=== PATIENT | male | born 1945 | race Caucasian/White ===

== ENCOUNTER 2016-08-26 10:59 | Inpatient (IN) | payer MEDICARE, OTHER ==
[~2016-08-26] VITALS: Ht 180.3 cm; Wt 80.0 kg
[~2016-08-26 10:59] MED LIST: ASPI325T32 PO; CARV12.52 PO; FURO40TA4 PO; INSU100I13 SUBQ; MAGN400C PO; RIVA20TA PO; TAMS0.4C29 PO; ZLP10T PO
[2016-08-26 11:02] VITALS: BP 210/88; PULSE 90; RESP 16; O2SAT 97
--- NOTE | 2016-08-26 11:09 | ED.REPORT ---
HPI-Chest Pain 40 and Over Date of Service August 26, 2016 ED Provider: Grace Ferrera MD Patient is a 71 year old male with a history of NJ and diabetes who presents to the ED due to intermittent chest pain for the past three weeks. Associated symptoms include shortness of breath for the past couple months that is exacerbated by exertion, diaphoresis, and feet swelling. He denies nausea and vomiting. The patient reports that he is not currently having any chest pain. His last episode of chest pain was yesterday. Patient has had 6-7 episodes of sharp chest pain over the past three weeks that is resolved after taking nitro. Nursing Notes Stated Complaint: CHEST PAIN Chief Complaint: Chest Pain Nursing Notes Reviewed: Yes Allergies: Coded Allergies: codeine (Verified Adverse Reaction, Mild, STOMACH UPSET, 08/26/16) patient has been taking cough syrup with codeine and is not suffering from side effects per patient report. Scheduled Aspirin (Aspirin) 325 Mg Tablet.dr 325 MG PO NOON Carvedilol (Carvedilol) 12.5 Mg Tablet 12.5 MG PO BID Furosemide (Furosemide) 40 Mg Tablet 120 MG PO DAILY Insulin Glargine (Lantus U100 Solostar Insulin Pen) 100 Unit/Ml Inj 15 UNIT SUBQ HS Magnesium Oxide (Magnesium) 400 Mg Capsule 400 MG PO DAILY Rivaroxaban (Xarelto) 20 Mg Tablet 20 MG PO HS Tamsulosin ER (Tamsulosin ER) 0.4 Mg Cap.er.24h 0.4 MG PO HS Scheduled PRN Zolpidem (Ambien) 10 Mg Tablet 10 MG PO HS PRN PRN For Insomnia General Time Seen by MD: 11:09 Chief Complaint Chest pain Hx Obtained From: Patient Arrived By: Walk-in Sudden in Onset?: Yes Onset Occurred: More than a week ago... (3 weeks) Symptom Duration: Intermittent Location: : Chest left: Chest right Radiation: : Does not radiate Severity: Current: No pain currently Associated with: Reports: Shortness of Breath, Denies: Nausea Recent Healthcare: No recent hospitalization Similar Sx Previous: Yes Past Medical History Past Medical History Notes: Heart catheterization from September 15, 2014: Did not have disease that warranted intervention other than medical therapy. Past Medical History CHF NJ Aortic insufficiency Pulmonary HTN Patent foramen ovale Reports: Cancer, Diabetes mellitus, Hyperlipidemia, Hypertension Past Surgical History Heart catheterization 6/1/15 left ear surgery left knee surgery left finger surgery Reports: Back/neck surgery Smoking History Former Smoker Social History Drug Use: Meth, THC Other Social History: , Local resident Ambulatory Status Independent Review of Systems Respiratory: Denies: Non-productive cough Cardiovascular: Reports: Chest pain, Dyspnea on exertion GI: Denies: Nausea, Vomiting Musculoskeletal: Reports: Extremity swelling (feet) Skin: Reports Diaphoresis Complete sys rev & neg: except as marked. Physical Exam Initial Vital Signs Vital Signs (First) Date Time Temp Pulse Resp B/P Pulse Ox O2 Delivery O2 Flow Rate FiO2 08/26/16 11:02 36.2 90 16 210/88 97 Room Air 08/26/16 11:28 2 Initial VS: Reviewed, Vital signs abnormal General/Constitutional: Awake, Alert, No acute distress Respiratory / Chest: Atraumatic, No respiratory distress Rales / Rhonchi: Positive: Rales R base Cardiovascular: Heart rate NL, Regular rhythm, Heart sounds NL Abdomen: Atraumatic, Soft, Non-tender Neck: Atraumatic, Full range of motion, No JVD Lower Extremity / Pelvis / MS: Atraumatic, Full range of motion trace edema to both extremities Skin: Atraumatic, Color NL, No rash, Warm diaphoretic Neurologic: Oriented X3, Speech NL, No motor deficits, No sensory deficits Psychiatric: Affect NL, Mood NL Head / Eyes: Atraumatic, Normocephalic, PERRL, EOMI Upper Extremity / MS: Atraumatic, Full range of motion Interpretation & Diagnostics Lab Results Interpretation Result Diagram: 08/26/16 1108 08/26/16 1232 Test 08/26/16 11:08 08/26/16 12:32 White Blood Count 6.2th/mm3 (3.8-10.1) Red Blood Count 5.60mil/mm3 (4.40-5.80) Hemoglobin 17.4g/dL (13.8-17.2) Hematocrit 50.3% (41.0-50.0) Mean Corpuscular Volume 89.8fL (81-100) Mean Corpuscular Hemoglobin 31.1pg (27.0-35.0) Mean Corpuscular Hemoglobin Concent 34.6% (32.0-37.0) Red Cell Distribution Width 12.4% (12.3-15.4) Platelet Count 180bil/L (150-400) Neutrophils (%) (Auto) 68.3% (40-74) Lymphocytes (%) (Auto) 21.2% (14-46) Monocytes (%) (Auto) 8.3% (4-12) Eosinophils (%) (Auto) 1.4% (0-5) Basophils (%) (Auto) 0.5% (0-3) Pro-B-Type Natriuretic Peptide 2185pg/mL (0-376) Hold Coleman Top Tube Received (Received) Sodium Level 138mEq/L (134-144) Potassium Level 4.3mEq/L (3.5-5.2) Chloride Level 102mEq/L (97-108) Carbon Dioxide Level 21mmol/L (18-29) Blood Urea Nitrogen 27mg/dL (8-27) Creatinine 1.31mg/dL (0.76-1.27) Estimat Glomerular Filtration Rate 58mL/min (>59) Glucose Level 231mg/dL (60-99) Calcium Level 9.0mg/dL (8.5-10.1) Magnesium Level 1.9mg/dL (1.6-2.6) Total Bilirubin 0.4mg/dL (0.0-1.2) Aspartate Amino Transf (AST/SGOT) 34U/L (0-50) Alanine Aminotransferase (ALT/SGPT) 27U/L (0-44) Alkaline Phosphatase 102U/L (25-160) Troponin T 0.027ug/L (0.0-0.011) Total Protein 6.6g/dL (6.4-8.4) Albumin 3.5g/dL (3.4-5.0) ECG Interpretation ECG Interpretation: RBBB ST wave in 1 and AVL, somewhat simliar to EKG on 10/2012 Time: 11:13 Interpreted by: ED physician Normal ECG Interpretation: Normal rate (82), Normal sinus rhythm X-Ray Chest Interpretation Chest Xray Interpretation: IMPRESSION: Stable chest. No acute cardiopulmonary process is evident. Dictated by: Lance Hlom M.D. on 08/26/2016 at 10:53 Approved by: Lance Holm M.D. on 08/26/2016 at 10:53 View: Portable, 1 view Interpretation / Wet Read by: Interpret - Radiologist Re-Eval/Medical Decision Med Decision/Clinical Course The patient presents with chest pain and dyspnea on exertion which has been going on for a few weeks, he does not currently chest pain. Partial versus differential diagnoses considered were congestive heart failure, dysrhythmia, [place] , pneumonia, and pulmonary embolus. Evaluation here shows he does have congestive heart failure, some of this could be related to his hypertension or he may have hypertension related to congestive heart failure. His troponin was slightly elevated which may be related to increased demand on the heart related to his congestive heart failure or he may have some ischemia related to his chest pain. The pain is atypical but similar to his prior ischemic pain. I spoke with Dr. Lucio regarding this patient, he has an abnormal EKG which is more dramatic than prior, he is not having any chest pain with EKG today. The patient was not given a beta hilary initially, he was given nitroglycerin which would help his congestive heart failure or ischemic heart disease. The patient's heart rate and blood pressure improved with nitroglycerin and he did not have any chest pain and no beta blockers were given while he was in the emergency department. Time of Eval: 13:49 Re-Evaluation/Progress Note: Discussed results and plan for admit. The patient understands and agrees to the plan for admit. All questions were addressed Consultation #1: Referral / Consult Name: Steve Lucio MD Consulted With: Cardiology Call Returned at: 11:20 Panel Sewer: Agrees with eval, Agrees with plan Consultation #2: Referral / Consult Name: Neyda Avitia DO Consulted With: Hospitalist Call Returned at: 13:53 Panel Sewer: Agrees with eval, Agrees with plan, Accepts admit Counseled Regarding: Diagnosis, Lab results, Need for admission Discharge & Departure Primary Impression: CHF (congestive heart failure) Congestive heart failure type: unspecified congestive heart failure type Congestive heart failure chronicity: unspecified congestive heart failure chronicity Qualified Code: I50.9 - Heart failure, unspecified Additional Impression: Unstable angina Disposition: ADMITTED TO HOSPITAL Discharge Condition All VS Reviewed: Yes Condition: Stable Referrals: NOPCP (PCP) Scribe Attestation Portions of this note were transcribed by Saloni Clayton. I, Dr. Ferrera personally performed the history, physical exam and medical decision-making; I reviewed and confirmed the accuracy of the information in the transcribed note. Signed by: Roger Ahmadi, 08/26/16 and 1350 Grace Ferrera MD August 26, 2016 11:09 Marni Clayton August 26, 2016 11:20
[2016-08-26] MEDS ORDERED: Nitroglycerin 2% 1 Gm Ointment TOPICAL ONE ×2 (11:22→11:25)
[2016-08-26 11:23] LABS: BASOPHILS % (AUTO) 0.5 % (0-3); EOSINOPHILS % (AUTO) 1.4 % (0-5); MONOCYTES % (AUTO) 8.3 % (4-12); Mean Corpuscular Hemoglobin 31.1 pg (27.0-35.0); Mean Corpuscular Volume 89.8 fL (81-100); NEUTROPHILS % (AUTO) 68.3 % (40-74); Platelet Count 180 bil/L (150-400)
[2016-08-26 11:28] VITALS: BP 198/89; PULSE 77; RESP 16; O2SAT 98
--- NOTE | 2016-08-26 11:55 | DRSVH ---
PROCEDURE: X-RAY CHEST ONE VIEW, PORTABLE ([id number]) INDICATIONS: CHEST PAIN TECHNIQUE: One view of the chest was acquired. COMPARISON: [facility], , CHEST 1VW (PORTABLE), 10/28/2014, 13:07. FINDINGS: Surgical changes and devices: None. Lungs and pleura: No pleural effusions or pneumothorax. Lungs are clear. Mediastinum: Mediastinal contours appear normal. Heart size is normal. Bones and chest wall: No suspicious bony lesions. Overlying soft tissues appear unremarkable. IMPRESSION: Stable chest. No acute cardiopulmonary process is evident. Dictated by: Lance Holm M.D. on 08/26/2016 at 10:53 Approved by: Lance Holm M.D. on 08/26/2016 at 10:53
[2016-08-26] MEDS ORDERED: Furosemide 10 mg/mL 4 mL Inj IVPUSH ONE (12:45)
[2016-08-26 13:11] LABS: Magnesium 1.9 mg/dL (1.6-2.6)
[2016-08-26 13:12] LABS: TROPONIN T 0.027 ug/L (0.0-0.011)
[2016-08-26] MEDS ORDERED: Ondansetron 2 mg/mL 2 mL Inj IVPUSH PRN ×2 (15:25→16:45)
[2016-08-26] MEDS ORDERED: Alum-Mag Hydrox-Simeth 30 mL Suspension PO PRN ×2 (15:25→16:45)
[2016-08-26 15:26] VITALS: BP 141/58; PULSE 70; RESP 14
[2016-08-26 15:53] LABS: APPEARANCE,URINE CLEAR (CLEAR,HAZY); COLOR,URINE YELLOW (YELLOW); PH,URINE 5.5 (5.0-8.0)
[2016-08-26 15:54] LABS: OCCULT BLOOD,URINE MODERATE (NEGATIVE); UROBILINOGEN,URINE NORMAL (NORMAL)
[2016-08-26] MEDS ORDERED: CARV25TA2 PO (16:41)
[2016-08-26] MEDS ORDERED: INSU100I13 SUBQ (16:42)
[2016-08-26] MEDS ORDERED: MIRT15TA6 PO (16:44)
--- NOTE | 2016-08-26 16:44 | NUR ---
Med Rec Pt reports using [facility] in [place] for his pharmacy needs. [facility] reports that pt has not filled furosemide or lantus in over a year. Pt states that he does use a mail-order pharmacy for some meds but does not know what it is called. States he gets mirtazapine from the mail-order pharmacy but does not know the dose. Asked pt to have his bring in med bottles, pt states is stuck at home with no car but might be able to get a ride with a friend.
[2016-08-26] MEDS ORDERED: Polyethylene Glycol (PEG) 17 Gm Powder PO PRN (16:45)
--- NOTE | 2016-08-26 16:49 | PCM.HPMED ---
Subjective Date of Service August 26, 2016 Primary Provider: Admitting Physician: Neyda Avitia DO Primary Care Physician: Nopsuze Attending Physician: Steve Lucio MD Allergies Coded Allergies: codeine (Verified Adverse Reaction, Mild, STOMACH UPSET, 08/26/16) patient has been taking cough syrup with codeine and is not suffering from side effects per patient report. PMH Social History Hx Alcohol Use: Yes Alcoholic Drinks Per Day: 2-3 beers/day Hx Substance Use: Yes ("I've done all the drugs you can think of") Smoking Status: Former Smoker Exam Vital Signs Vital Sign - Last Date Time Temp Pulse Resp B/P Pulse Ox O2 Delivery O2 Flow Rate FiO2 08/26/16 15:26 70 14 141/58 08/26/16 11:28 98 Nasal Cannula 2 08/26/16 11:02 36.2 Lab and Diagnostics Result Diagram: 08/26/16 1108 08/26/16 1232 Assessment & Plan HPI: Patient is a 71-year-old male presents to the hospital with a complaint of chest pain and dyspnea possibly related to a new onset of CHF. The patient states that over the last week or 2 he has had increasing sharp pains in his chest. The patient stated that he thought that the patient pain will go away and when it became worse and he decided to come in and get it checked out as this was similar to previous chest pain that he has had resulting in an RI. The patient states that currently he does have some chest pain but it seems to have improved. The patient denies any shortness of breath, nausea, vomiting, diarrhea and constipation. Home medications: Aspirin 325 mg daily Carvedilol 25 mg by mouth twice a day Lantus 20 units subcutaneous every daily at bedtime Mirtazapine 15 mg by mouth daily Zolpidem 10 mg by mouth daily at bedtime BPH Allergies: Codeine patient is unsure of the reaction as this happened years ago PMHx: CAD Diabetes Depression Previous RI SHx: Multiple low back surgeries Left knee replacement Left finger surgery Tonsillectomy FHx: Grandmother had diabetes, sister has diabetes SocHx: Occupation: Tobacco history: Patient quit smoking in 1976 previous 3 pack per day smoker 20 years Alcohol use: Patient quit drinking in 1976 and was a heavy drinker, however patient restarted drinking 3 beers daily a few years ago Drug use: Previous drug user no IV drugs only smoked drugs, currently only smokes marijuana occasionally ROS: A complete review of systems was performed or attempted to be performed. Please see HPI for pertinent positives, all other systems are negatives. Physical Exam: GEN: Patient was awake, alert, responding appropriately to questions HEENT: Pupils equal round and reactive to light, extraocular eye muscles intact , Neck soft supple, trachea midline, nomocephalic/atraumatic CV: +S1/S2, regular rate and rhythm, no murmur auscultated Respiratory: CTAB, no wheezes, rales, rhonchi GI: +bowel sounds x4, soft, compressible, nontender to palpation EXT: no clubbing, cyanosis, edema Neuro: Cranial nerves II-XII grossly intact Psych: mood and affect were appropriate Assessment and Plan 71-year-old male who presents with chest pain Chest pain -Trend troponins -Cardiac stress test if troponins are negative -Echo -Follow up labs -Nothing by mouth after midnight -Consult cardiology New-onset CHF -Follow up BNP -Continue diuresis with IV Lasix Hypertension -Continue home medications Diabetes -Continue home medications BPH (currently stable) -Patient a longer takes tamsulosin Depression -Continue mirtazapine Code Status: Full code Diet: Heart healthy DVT prophylaxis: SCDs and ambulation, and heparin, Disposition: Due to the nature of the patient's current diagnosis anticipated stay is greater than 2 midnight Time spent One hour Neyda Avitia DO August 26, 2016 16:49
[2016-08-26] MEDS: Furosemide 10 mg/mL 4 mL Inj IVPUSH SCH (16:55)
[2016-08-26 18:55] VITALS: BP 166/78; PULSE 83; RESP 18; O2SAT 94
[2016-08-26 19:52] VITALS: BP 165/89; PULSE 83; RESP 18; O2SAT 97
[2016-08-26] MEDS ORDERED: Insulin GLARgine 100 Unit/mL Syringe SUBQ SCH (21:00)
[2016-08-26] MEDS: Insulin Human REGular 300 Unit/3 mL Inj SUBQ SCH (22:17)
[2016-08-27] VITALS (10 sets, daily range): BP systolic 110–158; BP diastolic 56–74; PULSE 47–83; RESP 16–20; O2SAT 95–98
[2016-08-27] MEDS: Insulin Human REGular 300 Unit/3 mL Inj SUBQ SCH ×5 (01:25→21:49)
[2016-08-27 06:32] LABS: Mean Corpuscular Hemoglobin 31.6 pg (27.0-35.0); Mean Corpuscular Volume 90.3 fL (81-100)
[2016-08-27 07:10] LABS: Magnesium 1.9 mg/dL (1.6-2.6)
[2016-08-27 07:20] LABS: TROPONIN T 0.038 ug/L (0.0-0.011)
[2016-08-27] MEDS: Furosemide 10 mg/mL 4 mL Inj IVPUSH SCH (09:08)
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
--- NOTE | 2016-08-27 14:35 | DRSVH ---
[facility] [address] [place] [address] Echocardiogram Report Name: JENNFYER GLOVER JStudy Date: 08/27/2016 Height: 71 in Hospital Exam Location: [facility] Weight: 175 lb Gender: Male BSA: 2.0 m2 : 1945 Age: 71 yrs BP: 118/74 mmHg Reason For Study: CHEST PAIN Ordering Physician: DEYA RAMIREZ Performed By: Neri Hernandez Interpretation Summary Left ventricular systolic function is low normal with the ejection fraction visually estimated to be 55-60% with a mild dyssynchronous contraction pattern, consistent with a conduction abnormality and mild hypokinesis in the proximal and mid inferior rivera that is unchanged compared to the previous study. There is moderate concentric left ventricular hypertrophy with diastolic parameters suggesting a relaxation abnormality of the left ventricle, consistent with normal filling pressures. There has been no significant change since the previous study. The right ventricle is normal size but there is mild right ventricular hypertrophy that is more prominent compared to the previous study. Right ventricular systolic function is at the lower limits of normal and is unchanged compared to the previous study. The right ventricular systolic pressure is estimated at 35 mmHg assuming a right atrial pressure of 3 mm Hg and comparison with the previous study is not possible because this was unable to be assessed on the previous study. The left atrium is mildly dilated while right atrial size is normal. Both appear unchanged compared to the previous study. The aortic valve is bicuspid and mildly calcified but there is no hemodynamically significant aortic stenosis. There is probable moderate aortic regurgitation with an eccentric jet of aortic insufficiency directed against the anterior mitral leaflet that makes quantification difficult but there is mild holodiastolic flow reversal in the descending thoracic aorta but this appears unchanged compared to the previous study. There is no other significant valvular heart disease. The ascending aorta is moderately enlarged and the aortic arch is mildly enlarged and both are grossly unchanged compared to the previous study. Procedure: A two-dimensional transthoracic echocardiogram with color flow and Doppler was performed. The study quality was technically good. Comparison is made with the echocardiogram of 04/21/15. The patient was in normal sinus rhythm during the exam. Left Ventricle: The left ventricle is normal in size. There is moderate concentric left ventricular hypertrophy. Left ventricular systolic function is low normal. The ejection fraction is estimated to be 55-60%. There is a mild dyssynchronous contraction pattern, consistent with a conduction abnormality. There is mild hypokinesis in the proximal and mid inferior rivera. This is unchanged compared to the previous study. Assessment of diastolic parameters indicates a relaxation abnormality of the left ventricle, consistent with normal filling pressures. There has been no significant change since the previous study. Right Ventricle: The right ventricle is normal size. There is mild right ventricular hypertrophy. This is more prominent compared to the previous study. Right ventricular systolic function is at the lower limits of normal. This is unchanged compared to the previous study. Atria: The left atrium is mildly dilated. Right atrial size is normal. This is unchanged compared to the previous study. The interatrial septum is intact with no evidence for an atrial septal defect. Mitral Valve: The mitral valve leaflets appear borderline thickened, but open well. There is trace mitral regurgitation. This is unchanged compared to the previous study. Aortic Valve: The aortic valve is bicuspid. The aortic valve is mildly calcified. Leaflet mobility is mildly reduced. There is no hemodynamically significant valvular aortic stenosis. There is moderate aortic regurgitation. There is an eccentric jet of aortic insufficiency directed against the anterior mitral leaflet. There is mild holodiastolic flow reversal in the descending thoracic aorta. This is unchanged compared to the previous study. Tricuspid Valve: The tricuspid valve is normal in structure and function. There is mild tricuspid regurgitation. This is unchanged compared to the previous study. The right ventricular systolic pressure is estimated at 35 mmHg assuming a right atrial pressure of 3 mm Hg. Comparison with the previous study is not possible because this was unable to be assessed on the previous study. Pulmonic Valve: The pulmonic valve is normal in structure and function. There is trace pulmonic regurgitation. There is no other significant valvular heart disease. Great Vessels: The aortic root is normal size. The ascending aorta is moderately enlarged. The aortic arch is mildly enlarged. This is unchanged compared to the previous study. The pulmonary artery is normal size. The IVC is of normal diameter and collapses greater than 50% with a sniff. This suggests a low right atrial pressure of 3 mm Hg. Pericardium/ Pleura There is no pericardial effusion. There is no pleural effusion. MMode/2D Measurements & Calculations LVIDd LA dimension: 5.0 cm RA long axis: 5.3 cm LVOT diam: 2.5 cm : 6.1 cm AoV Openin.1 cm LVIDs LA A2 area: 23.5 cm RA area: 15.1 cm Ao root diam : 4.5 cm LA A4 area: 26.8 cm RA vol: 36.6 ml FS: 26.7 % LA length (vol) RA : 18.4 ml/m2 Aortic Jxn: 2.7 cm EPSS: 1.4 cm asc Aorta Diam IVSd: 1.2 cmLA vol: 79.4 ml LVPWd LA vol index Ao Arch Diam (Prox : 1.1 cm Trans): 3.2 cm IVC diam: 1.3 cm DIMITRIS (plan) LV magana. diameter/BSA LV sys. diameter/BSA : 2.8 cm2 (cm/m^2): 3.1 (cm/m^2): 2.3 Doppler Measurements & Calculations Ao V2 max: 286.0 cm/sec MV E max agustin MV E/A: 0.52 TR max agustin Ao max P.7 mmHg : 30.6 cm/sec MV A dur : 282.4 cm/sec Ao mean P.7 mmHg MV A max agustin : 0.11 sec TR max PG LVOT Max Agustin : 58.2 cm/sec : 31.9 mmHg : 85.0 cm/sec PA V2 max DIMITRIS(I,D): 1.4 cm : 69.0 cm/sec sev ratio: 0.29 PA mean PG PA Accel Time : 0.11 sec MV dec time: 0.27 sec Ao V2 mean LV V1 max PG PA V2 mean : 214.2 cm/sec : 51.7 cm/sec Ao V2 VTI: 64.4 cm LV V1 VTI PA pr(Accel) DIMITRIS(V,D): 1.4 cm2 : 18.8 cm : 32.8 mmHg DIMITRIS indexed to BSA (cm^2/m^2): 0.71 Reading Physician:02:34 PM
--- NOTE | 2016-08-27 16:41 | NUR ---
[facility] signed
--- NOTE | 2016-08-27 18:44 | PCM.PNMED ---
Subjective Date of Service August 27, 2016 Subjective Patient was seen and examined at bedside today. Patient denies any chest pain, shortness of breath, nausea, vomiting, diarrhea. Overnight events: Overnight the patient had an acute anxiety attack and sharp chest pains. The patient had an EKG and troponins taken. Nothing seems to be changed from the patient's current baseline. The patient was given some Ativan and this seemed to help calm him down. Exam Vital Signs Vital Sign - Last Date Time Temp Pulse Resp B/P Pulse Ox O2 Delivery O2 Flow Rate FiO2 08/27/16 17:05 36.7 64 20 134/59 96 Room Air 08/26/16 11:28 2 Intake and Output 08/26/16 08/26/16 08/27/16 Cumulative From/Thru 15:00 23:00 07:00 08/26/16 11:02 - 08/27/16 06:51 Intake Total 420 ml 420 ml Output Total 1000 ml 650 ml 1650 ml Balance -1000 ml -230 ml -1230 ml Intake Oral 420 ml 420 ml Output Urine Total 1000 ml 650 ml 1650 ml # Voids 2 2 Exam Physical Exam: GEN: Patient was awake, alert, responding appropriately to questions, a little disheveled HEENT: Pupils equal round and reactive to light, extraocular eye muscles intact , Neck soft supple, trachea midline, nomocephalic/atraumatic CV: +S1/S2, regular rate and rhythm, systolic murmur auscultated Respiratory: CTAB, no wheezes, rales, rhonchi GI: +bowel sounds x4, soft, compressible, nontender to palpation EXT: no clubbing, cyanosis, edema Neuro: Cranial nerves II-XII grossly intact Psych: mood and affect were appropriate IVs and Medications Medications Reviewed: Medications were reviewed in detail Lab and Diagnostics Result Diagram: 08/27/16 0610 08/27/16 0610 Cardiac Echo Impressions Echocardiogram Report Name: JENNYFER GLOVER JStudy Date: 08/27/2016 Height: 71 in Hospital Exam Location: [facility] Weight: 175 lb Gender: Male BSA: 2.0 m2 : 1945 Age: 71 yrs BP: 118/74 mmHg Reason For Study: CHEST PAIN Ordering Physician: DEYA RAMIREZ Performed By: Neri Hernandez Interpretation Summary Left ventricular systolic function is low normal with the ejection fraction visually estimated to be 55-60% with a mild dyssynchronous contraction pattern, consistent with a conduction abnormality and mild hypokinesis in the proximal and mid inferior rivera that is unchanged compared to the previous study. There is moderate concentric left ventricular hypertrophy with diastolic parameters suggesting a relaxation abnormality of the left ventricle, consistent with normal filling pressures. There has been no significant change since the previous study. The right ventricle is normal size but there is mild right ventricular hypertrophy that is more prominent compared to the previous study. Right ventricular systolic function is at the lower limits of normal and is unchanged compared to the previous study. The right ventricular systolic pressure is estimated at 35 mmHg assuming a right atrial pressure of 3 mm Hg and comparison with the previous study is not possible because this was unable to be assessed on the previous study. The left atrium is mildly dilated while right atrial size is normal. Both appear unchanged compared to the previous study. The aortic valve is bicuspid and mildly calcified but there is no hemodynamically significant aortic stenosis. There is probable moderate aortic regurgitation with an eccentric jet of aortic insufficiency directed against the anterior mitral leaflet that makes quantification difficult but there is mild holodiastolic flow reversal in the descending thoracic aorta but this appears unchanged compared to the previous study. There is no other significant valvular heart disease. The ascending aorta is moderately enlarged and the aortic arch is mildly enlarged and both are grossly unchanged compared to the previous study. Reading Physician:02:34 PM Assessment & Plan 71-year-old male who presents with chest pain Chest pain -Troponins are trending up -Stress test was canceled -Echo: 55-60% relatively unchanged from previous echo, except the patient does have a moderate LVH -Consulted cardiology (Dr. Lucio) New-onset CHF with moderate LVH -Follow up BNP -Change patient to by mouth Lasix 40mg daily Hypertension -Decrease carvedilol to 12.5 mg by mouth twice a day -Aspirin 325 daily -We will possibly reintroduce ROMEO inhibitor or Norvasc the patient's daily regimen Diabetes (uncontrolled) -Hemoglobin A1c is 9.2 -Increase Lantus to 30 units daily at bedtime BPH (currently stable) -Patient a longer takes tamsulosin Depression -Continue mirtazapine Hyperlipidemia -Patient's total cholesterol is 327 and LDL is elevated at 195 -Start 40 mg of atorvastatin daily at bedtime Code Status: Full code Diet: Heart healthy DVT prophylaxis: SCDs and ambulation, and heparin, Disposition: After extensive discussion with Dr. Lucio was cardiology it was decided that the patient's symptoms are most likely secondary to hypertension and renal insufficiency due to the patient being noncompliant with his medications. At this time the patient's beta hilary has been decreased secondary to bradycardia. The patient will need another 1-2 days to optimize his medications for hypertension. Will add back either an ROMEO inhibitor or amlodipine based on the patient's blood pressure. Neyda Avitia DO August 27, 2016 18:44
--- NOTE | 2016-08-27 18:47 | PCM.ADCARE ---
Advance Care Planning Note Plan: Purpose of encounter: Goals of care Parties in attendance: The patient and Dr. Avitia Decisional capacity: Good Plan: The patient is aware of the current diagnosis and would like to continue to be full code. The patient understands that this means that he will have chest compressions, intubation, pressors, and all measures involved with CPR. CODE STATUS: Full code Time spent with advanced care planning: Greater than 16 minutes Neyda Avitia DO August 27, 2016 18:47
[2016-08-27] MEDS ORDERED: Insulin GLARgine 100 Unit/mL Syringe SUBQ SCH (21:00)
[2016-08-28] VITALS (8 sets, daily range): BP systolic 131–177; BP diastolic 59–76; PULSE 56–84; RESP 16–20; O2SAT 94–97
--- NOTE | 2016-08-28 06:00 | NUR ---
No change in condition Pt rested, eyes closed, through the night with no change in condition. No S/S or complaints of chest pain.
[2016-08-28 06:59] LABS: Mean Corpuscular Hemoglobin 31.8 pg (27.0-35.0); Mean Corpuscular Volume 91.8 fL (81-100)
[2016-08-28 08:17] LABS: Magnesium 2.1 mg/dL (1.6-2.6)
[2016-08-28 08:19] LABS: TROPONIN T 0.045 ug/L (0.0-0.011)
[2016-08-28] MEDS: Insulin Human REGular 300 Unit/3 mL Inj SUBQ SCH ×4 (08:48→20:40)
--- NOTE | 2016-08-28 14:18 | NUR ---
Social Work: Initial Assessment / Readiness for d/c Data: Pt is a 71 y/o male admitted for CHF, unstable angina. Pt's PCP is not listed. Pt's insurance is Medicare with [employer]. EMR reviewed. Readmit score is 4, high. DUB ROOM ENGINEER met with pt at bedside, role explained. Pt states that he lives in [place] with his in a two story home where he occasionally uses a cane. Pt states he drives, has no hx of HH or SNF, no LTC or VA benefits, pt is not a caregiver. DUB ROOM ENGINEER offered HH RN regarding pt's CHF. Pt declines at this time. Pt has a hx of drug use, but states that is in the past and that he does not currently use. DUB ROOM ENGINEER will continue to follow if needs arise. Assessment: Pt who is independent at baseline. Plan: Pt will d/c home via POV when medically stable, likely 1-2 days per MD. DUB ROOM ENGINEER offered HH RN regarding pt's CHF. Pt declines at this time. DUB ROOM ENGINEER will continue to follow if needs arise. DANILO Apodaca Addendum: 08/28/16 at 1421 by CHLOE PA Amended: Links added.
--- NOTE | 2016-08-28 14:23 | PCM.PNMED ---
Subjective Date of Service August 28, 2016 Subjective Patient was seen and examined at bedside today. Patient denies any chest pain, shortness of breath, nausea, vomiting, diarrhea. Patient states that he is feeling better and that most of his symptoms have resolved. The patient states that he does have insomnia however he has been sleeping well here. Overnight events: None Exam Vital Signs Vital Sign - Last Date Time Temp Pulse Resp B/P Pulse Ox O2 Delivery O2 Flow Rate FiO2 08/28/16 13:35 36.3 60 20 135/59 94 Room Air 08/26/16 11:28 2 Intake and Output 08/27/16 08/27/16 08/28/16 Cumulative From/Thru 15:00 23:00 07:00 08/26/16 11:02 - 08/28/16 05:39 Intake Total 1490 ml 1910 ml Output Total 950 ml 2600 ml Balance 540 ml -690 ml Intake Oral 1490 ml 1910 ml Output Urine Total 950 ml 2600 ml # Voids 2 Exam Physical Exam: GEN: Patient was awake, alert, responding appropriately to questions HEENT: Pupils equal round and reactive to light, extraocular eye muscles intact , Neck soft supple, trachea midline, nomocephalic/atraumatic CV: +S1/S2, regular rate and rhythm, systolic murmur auscultated Respiratory: CTAB, no wheezes, rales, rhonchi GI: +bowel sounds x4, soft, compressible, nontender to palpation EXT: no clubbing, cyanosis, edema Neuro: Cranial nerves II-XII grossly intact Psych: mood and affect were appropriate IVs and Medications Medications Reviewed: Medications were reviewed in detail Lab and Diagnostics Result Diagram: [id number]/28/[id number] Cardiac Echo Impressions Echocardiogram Report Name: JENNYFER GLOVER JStudy Date: 08/27/2016 Height: 71 in Hospital Exam Location: [facility] Weight: 175 lb Gender: Male BSA: 2.0 m2 : 1945 Age: 71 yrs BP: 118/74 mmHg Reason For Study: CHEST PAIN Ordering Physician: DEYA TEAM Performed By: Neri Hernandez Interpretation Summary Left ventricular systolic function is low normal with the ejection fraction visually estimated to be 55-60% with a mild dyssynchronous contraction pattern, consistent with a conduction abnormality and mild hypokinesis in the proximal and mid inferior rivera that is unchanged compared to the previous study. There is moderate concentric left ventricular hypertrophy with diastolic parameters suggesting a relaxation abnormality of the left ventricle, consistent with normal filling pressures. There has been no significant change since the previous study. The right ventricle is normal size but there is mild right ventricular hypertrophy that is more prominent compared to the previous study. Right ventricular systolic function is at the lower limits of normal and is unchanged compared to the previous study. The right ventricular systolic pressure is estimated at 35 mmHg assuming a right atrial pressure of 3 mm Hg and comparison with the previous study is not possible because this was unable to be assessed on the previous study. The left atrium is mildly dilated while right atrial size is normal. Both appear unchanged compared to the previous study. The aortic valve is bicuspid and mildly calcified but there is no hemodynamically significant aortic stenosis. There is probable moderate aortic regurgitation with an eccentric jet of aortic insufficiency directed against the anterior mitral leaflet that makes quantification difficult but there is mild holodiastolic flow reversal in the descending thoracic aorta but this appears unchanged compared to the previous study. There is no other significant valvular heart disease. The ascending aorta is moderately enlarged and the aortic arch is mildly enlarged and both are grossly unchanged compared to the previous study. Reading Physician:02:34 PM Assessment & Plan 71-year-old male who presents with chest pain Chest pain -Troponins are trending up -Stress test was canceled -Echo: 55-60% relatively unchanged from previous echo, except the patient does have a moderate LVH -Consulted cardiology (Dr. Lucio) New-onset CHF with moderate LVH -Follow up BNP -Change patient to by mouth Lasix 40mg daily Hypertension -Decrease carvedilol to 12.5 mg by mouth twice a day -Aspirin 325 daily -Start Norvasc 5 mg daily Acute kidney injury -Creatinine trending down -Hold off on lisinopril -Continue to monitor Diabetes (uncontrolled) -Hemoglobin A1c is 9.2 -Increase Lantus to 35 units daily at bedtime BPH (currently stable) -Patient states that he is taking tamsulosin restart tamsulosin 0.4 mg daily Depression -Continue mirtazapine Hyperlipidemia -Patient's total cholesterol is 327 and LDL is elevated at 195 -Start 40 mg of atorvastatin daily at bedtime Code Status: Full code Diet: Heart healthy DVT prophylaxis: SCDs and ambulation, and heparin, Disposition: Discussed this patient earlier today with Dr. Lucio (cardiology) who agrees with the plan to start the patient on Norvasc 5 mg daily as currently his blood pressure and heart rate did not seem to be able to tolerate an increased dose of metoprolol. A discussion was had with the patient today who states that he did stop taking his medications because he was ready to " give up on life" however he has restarted taking his medications especially his depression medication and this has helped him which is why he decided to come into the hospital when his chest pain started. The patient states that he is in a much better frame of mind currently and will be more compliant with his home medications. Neyda Avitia DO August 28, 2016 14:23
[2016-08-28] MEDS: DVT Prophylaxis per Pharmacist XX SCH (17:00)
--- NOTE | 2016-08-28 18:00 | NUR ---
Activity/shift Pt ind in room, tolerating activity with no c/o SOB or CP/discomfort. Pt took a shower this AM and tolerated well. Bed in lowest, locked position and call light in reach.
[2016-08-28] MEDS ORDERED: Insulin GLARgine 100 Unit/mL Syringe SUBQ SCH (21:00)
[2016-08-29 01:12] VITALS: BP 131/65; PULSE 59; RESP 16; O2SAT 96
[2016-08-29 05:15] VITALS: BP 133/64; PULSE 54; RESP 16; O2SAT 95
[2016-08-29] MEDS: Insulin Human REGular 300 Unit/3 mL Inj SUBQ SCH ×3 (07:30→16:23)
[2016-08-29 07:58] LABS: TROPONIN T 0.042 ug/L (0.0-0.011)
[2016-08-29 08:45] VITALS: BP 137/55; PULSE 53; RESP 18; O2SAT 96
--- NOTE | 2016-08-29 09:29 | NUR ---
HR HR 53 this AM, Coreg held. Pt asymptomatic. aware. Addendum: 08/29/16 at 1217 by JACOB VASQUES RN MD ordered decreased dose of Coreg (6.25mg). Dose given at ~1010 this AM. Upon reassessment, AP 59, pt asymptomatic. notified. Addendum: 08/29/16 at 1521 by THEA ARIZA @ 1200 initial BP 177/68 HR 59 patient had just been coughing. On recheck BP 172/64 HR 64 manual. notified, ordered lisinopril 5mg, administered at ~1400. Reassessment at 1500 BP 150/62 manual HR 64, patient asymptomatic, cookpaged. Addendum: 08/29/16 at 1834 by JACOB VASQUES RN Tierra TOVAR agrees with above.
[2016-08-29 10:04] VITALS: PULSE 58
[2016-08-29 12:35] VITALS: BP 177/68; PULSE 59
[2016-08-29 14:40] VITALS: BP 149/63; PULSE 64; RESP 18; O2SAT 95
[2016-08-29] MEDS ORDERED: INSU100V7 SUBQ (16:00)
[2016-08-29] MEDS ORDERED: CARV6.252 PO (16:00)
[2016-08-29] MEDS ORDERED: TAMS0.4C98 PO (16:00)
[2016-08-29] MEDS ORDERED: TEMA15CA3 PO (16:00)
[2016-08-29] MEDS ORDERED: ATOR40TA69 PO (16:00)
[2016-08-29] MEDS ORDERED: FURO40TA4 PO (16:00)
[2016-08-29] MEDS ORDERED: LISI-571 PO (16:00)
[2016-08-29] MEDS ORDERED: AMLO5TAB2 PO (16:00)
--- NOTE | 2016-08-29 16:14 | PCM.DIMED ---
Discharge Instructions Date of Service August 29, 2016 Dates of Hospitalization August 26, 2016 at 14:24 Discharge Diagnosis Discharge Diagnosis Chest pain with elevated troponins (likely stress-induced secondary to new onset CHF) New-onset congestive heart failure with moderate left ventricular hypertrophy Hypertension Acute kidney injury Diabetes (uncontrolled) BPH Depression Medication Instructions You have been prescribed some new medications please follow the new prescriptions and take your medications as prescribed. Diet Heart Healthy, Diabetic Activity No restrictions (gradually return to normal daily activities) Call your provider Shortness of breath, Chest pain, Weakness (unilateral) Patient Instructions Follow-up Provider: Davion Parra DO Follow-up with PCP in: 1 week (09/05/16 at 10: 30am if you have any questions please call [phone]) Neyda Avitia DO August 29, 2016 16:14
--- NOTE | 2016-08-29 16:16 | PCM.DC.MED ---
Discharge Summary Date of Service August 29, 2016 Dates of Hospitalization Date of Hospital Admission August 26, 2016 at 14:24 Date of Discharge: August 29, 2016 Providers: Admitting Physician: Neyda Avitia DO Primary Care Physician: Nopcp Attending Physician: Steve Lucio MD Diagnosis at Time of Discharge Diagnosis at Time of Discharge Chest pain with elevated troponins (likely stress-induced secondary to new onset CHF) New-onset congestive heart failure with moderate left ventricular hypertrophy Hypertension Acute kidney injury Diabetes (uncontrolled) BPH Depression Procedures Cardiac Echo Impression Echocardiogram Report Name: JENNYFER GLOVER JStudy Date: 08/27/2016 Height: 71 in Hospital Exam Location: [facility] Weight: 175 lb Gender: Male BSA: 2.0 m2 : 1945 Age: 71 yrs BP: 118/74 mmHg Reason For Study: CHEST PAIN Ordering Physician: DEYA RAMIREZ Performed By: Neri Hernandez Interpretation Summary Left ventricular systolic function is low normal with the ejection fraction visually estimated to be 55-60% with a mild dyssynchronous contraction pattern, consistent with a conduction abnormality and mild hypokinesis in the proximal and mid inferior rivera that is unchanged compared to the previous study. There is moderate concentric left ventricular hypertrophy with diastolic parameters suggesting a relaxation abnormality of the left ventricle, consistent with normal filling pressures. There has been no significant change since the previous study. The right ventricle is normal size but there is mild right ventricular hypertrophy that is more prominent compared to the previous study. Right ventricular systolic function is at the lower limits of normal and is unchanged compared to the previous study. The right ventricular systolic pressure is estimated at 35 mmHg assuming a right atrial pressure of 3 mm Hg and comparison with the previous study is not possible because this was unable to be assessed on the previous study. The left atrium is mildly dilated while right atrial size is normal. Both appear unchanged compared to the previous study. The aortic valve is bicuspid and mildly calcified but there is no hemodynamically significant aortic stenosis. There is probable moderate aortic regurgitation with an eccentric jet of aortic insufficiency directed against the anterior mitral leaflet that makes quantification difficult but there is mild holodiastolic flow reversal in the descending thoracic aorta but this appears unchanged compared to the previous study. There is no other significant valvular heart disease. The ascending aorta is moderately enlarged and the aortic arch is mildly enlarged and both are grossly unchanged compared to the previous study. Reading Physician:02:34 PM Hospital Course 71-year-old male who presents with chest pain Patient was admitted for chest pain with elevated troponins secondary to demand ischemia from the new onset of CHF. Many of the patient's medications have been changed as the patient has been noncompliant with his medications. The patient is now taking carvedilol 6.25 twice a day as he was having severe bradycardia. The patient has also been taking amlodipine 10 mg daily and lisinopril 5 mg daily to control his high blood pressure. Cardiology was consulted during this visit and found that the patient's chest pain and elevated troponins are most likely secondary to his uncontrolled hypertension with bradycardia. The patient also had uncontrolled diabetes with hemoglobin A1c of 9.2. His Lantus has been increased to 35 units daily at bedtime and this seems to have controlled the patient's blood sugars for now. He has been instructed to follow -up with his PCP in order to continue optimizing his medications. The patient has also been instructed to follow-up with his back grinder Dr. Marcial for further management of his cardiac medications. The patient is being discharged home in stable condition. For full hospital course see below: Chest pain -Troponins are trending up -Stress test was canceled -Echo: 55-60% relatively unchanged from previous echo, except the patient does have a moderate LVH -Consulted cardiology (Dr. Lucio) New-onset CHF with moderate LVH -Follow up BNP -Change patient to by mouth Lasix 40mg daily Hypertension -Decrease carvedilol to 12.5 mg by mouth twice a day -Aspirin 325 daily -Start Norvasc 5 mg daily Acute kidney injury (resolved) -Creatinine trending down -Hold off on lisinopril -Continue to monitor Diabetes (uncontrolled) -Hemoglobin A1c is 9.2 -Increase Lantus to 35 units daily at bedtime BPH (currently stable) -Patient states that he is taking tamsulosin restart tamsulosin 0.4 mg daily Depression -Continue mirtazapine Hyperlipidemia -Patient's total cholesterol is 327 and LDL is elevated at 195 -Start 40 mg of atorvastatin daily at bedtime Code Status: Full code Diet: Heart healthy DVT prophylaxis: SCDs and ambulation, and heparin, Disposition: Discussed this patient earlier today with Dr. Lucio (cardiology) who agrees with the plan to start the patient on Norvasc 5 mg daily as currently his blood pressure and heart rate did not seem to be able to tolerate an increased dose of metoprolol. A discussion was had with the patient today who states that he did stop taking his medications because he was ready to " give up on life" however he has restarted taking his medications especially his depression medication and this has helped him which is why he decided to come into the hospital when his chest pain started. The patient states that he is in a much better frame of mind currently and will be more compliant with his home medications. Exam Vital Signs (Last) Date Time Temp Pulse Resp B/P Pulse Ox O2 Delivery O2 Flow Rate FiO2 08/29/16 14:40 36.5 64 18 149/63 95 Room Air 08/26/16 11:28 2 Exam Physical Exam: GEN: Patient was awake, alert, responding appropriately to questions HEENT: Pupils equal round and reactive to light, extraocular eye muscles intact , Neck soft supple, trachea midline, nomocephalic/atraumatic CV: +S1/S2, regular rate and rhythm, systolic murmur auscultated Respiratory: CTAB, no wheezes, rales, rhonchi GI: +bowel sounds x4, soft, compressible, nontender to palpation EXT: no clubbing, cyanosis, edema Neuro: Cranial nerves II-XII grossly intact Psych: mood and affect were appropriate Test 08/26/16 11:08 08/26/16 15:30 08/27/16 06:10 08/28/16 06:34 Neutrophils (%) (Auto) 68.3% (40-74) Lymphocytes (%) (Auto) 21.2% (14-46) Monocytes (%) (Auto) 8.3% (4-12) Eosinophils (%) (Auto) 1.4% (0-5) Basophils (%) (Auto) 0.5% (0-3) Hemoglobin A1c 9.2% (4.8-5.6) Hold Coleman Top Tube Received (Received) Urine Color Yellow (YELLOW) Urine Appearance Clear (CLEAR,HAZY) Urine pH 5.5 (5.0-8.0) Urine Specific Fults 1.025 (1.003-1.035) Urine Protein >300mg/dL (NEG,TRACE) Urine Glucose (UA) 250mg/dL (NEGATIVE) Urine Ketones Negativemg/dL (NEGATIVE) Urine Occult Blood Moderate (NEGATIVE) Urine Nitrite Negative (NEGATIVE) Urine Bilirubin Negative (NEGATIVE) Urine Urobilinogen Normalmg/dL (NORMAL) Urine Leukocyte Esterase Negative (NEGATIVE) Urine RBC 0-2/hpf (0-2) Urine WBC 0-5/hpf (0-5) Urine Epithelial Cells Few/hpf (NONE-MOD) Urine Crystals None seen (NONE SEEN) Urine Bacteria Few/hpf (NONE-FEW) Urine Hyaline Casts None/lpf (NONE) Urine Granular Casts None seen (NONE SEEN) Urine Waxy Casts None seen (NONE SEEN) Urine Red Blood Cell Casts None seen (NONE SEEN) Urine White Blood Cell Casts None seen (NONE SEEN) Urine Mucus None seen (None Seen) Urine Trichomonas None seen (NONE SEEN) Urine Yeast None (NONE SEEN) Urinalysis Comment None Urine Culture Reflexed Not indicated Triglycerides Level 461mg/dL (0-149) Cholesterol Level 327mg/dL (100-199) LDL Cholesterol, Calculated 195.800mg/dL (0-99) VLDL Cholesterol 92.200mg/dL HDL Cholesterol 39mg/dL (>39) Cholesterol/HDL Ratio 8.38 (0.0-4.4) White Blood Count 6.3th/mm3 (3.8-10.1) Red Blood Count 4.88mil/mm3 (4.40-5.80) Hemoglobin 15.5g/dL (13.8-17.2) Hematocrit 44.8% (41.0-50.0) Mean Corpuscular Volume 91.8fL (81-100) Mean Corpuscular Hemoglobin 31.8pg (27.0-35.0) Mean Corpuscular Hemoglobin Concent 34.6% (32.0-37.0) Red Cell Distribution Width 12.4% (12.3-15.4) Platelet Count 165bil/L (150-400) Magnesium Level 2.1mg/dL (1.6-2.6) Total Bilirubin 0.3mg/dL (0.0-1.2) Aspartate Amino Transf (AST/SGOT) 28U/L (0-50) Alanine Aminotransferase (ALT/SGPT) 20U/L (0-44) Alkaline Phosphatase 93U/L (25-160) Pro-B-Type Natriuretic Peptide 581.4pg/mL (0-376) Total Protein 5.7g/dL (6.4-8.4) Albumin 3.2g/dL (3.4-5.0) Test 08/29/16 06:48 Sodium Level 141mEq/L (134-144) Potassium Level 3.9mEq/L (3.5-5.2) Chloride Level 101mEq/L (97-108) Carbon Dioxide Level 27mmol/L (18-29) Blood Urea Nitrogen 34mg/dL (8-27) Creatinine 1.48mg/dL (0.76-1.27) Estimat Glomerular Filtration Rate 50mL/min (>59) Glucose Level 128mg/dL (60-99) Calcium Level 9.1mg/dL (8.5-10.1) Troponin T 0.042ug/L (0.0-0.011) Discharge Medications Discharge Medications Amlodipine (Amlodipine) 5 Mg Tablet 10 MG PO DAILY Prescribed by: NEYDA AVITIA DO Aspirin (Aspirin) 325 Mg Tablet.dr 325 MG PO DAILY (Reported) Atorvastatin Calcium (Atorvastatin Calcium) 40 Mg Tablet 40 MG PO HS Prescribed by: NEYDA AVITIA DO Carvedilol (Carvedilol) 6.25 Mg Tablet 6.25 MG PO BID Prescribed by: NEYDA AVITIA DO Furosemide (Furosemide) 40 Mg Tablet 40 MG PO DAILY Prescribed by: NEYDA AVITIA DO Insulin Glargine (Lantus U100 Insulin Vial) 100 Unit/Ml Vial 35 UNIT SUBQ HS Prescribed by: NEYDA AVITIA DO Lisinopril (Lisinopril) 5 Mg Tablet 5 MG PO DAILY Prescribed by: NEYDA AVITIA DO Mirtazapine (Mirtazapine) 15 Mg Tablet Unknown Dose PO DAILY (Reported) Tamsulosin (Flomax) 0.4 Mg Capsule 0.4 MG PO DAILY Prescribed by: NEYDA AVITIA DO As needed Temazepam (Restoril) 15 Mg Capsule 30 MG PO HS PRN PRN Insomnia Prescribed by: NEYDA AVITIA DO Additional med instructions You have been prescribed some new medications please follow the new prescriptions and take your medications as prescribed. Followup Plan Discharge Diet: Heart Healthy, Diabetic Discharge Activity: No restrictions (gradually return to normal daily activities) Follow-up Provider: Davion Parra DO Follow-up with PCP in: 1 week (09/05/16 at 10: 30am if you have any questions please call [phone]) Provider: Luis A Marcial MD Follow-up in: 2 weeks (please call to schedule an appointment ) Time spent Greater than 35 minutes copies to: Luis A Marcial MD; Davion Parra Precious L DO August 29, 2016 16:16
--- NOTE | 2016-08-29 16:53 | NUR ---
SW - Discharge Data: Pt is on day 3 of hospitalization for CHF, unstable angina. EMR reviewed. Pt is medically cleared for discharge, is up independent in room. Pt has history of drug use but is not currently using. Pt declines HH services. Pt to discharge home via family. No needs assessed. Assessment: Pt who is independent at baseline Plan: Pt to discharge home via POV. No needs assessed. DANILO Verdin
[2016-08-29] MEDS: DVT Prophylaxis per Pharmacist XX SCH (17:00)
--- NOTE | 2016-08-29 18:14 | NUR ---
DISCHARGE Patient dc'd to home at 1755, off unit in wheelchair accompanied by his . Vital signs stable, alert and oriented, denies pain/discomfort/SOB, in no apparent distress. IV dc'd intact, all belongings returned from room and safe. All instructions for diet, activity, medications, prescriptions and follow up reviewed with patient who reports understanding. Addendum: 08/29/16 at 1834 by JACOB VASQUES RN This RN agrees with above.
== END 2016-08-29 18:09 | disposition home or self-care (01) | DRG 313 ==
LOC: SED 10:59 → OBSVTOIN 14:24 → MPC 14:24
PROVIDERS: ADMIT Neuromusculoskeletal Medicine & OMM; ATTEND Specialist
DX: R07.89 Other chest pain (principal); I50.9 Heart failure, unspecified; I25.2 Old myocardial infarction; Z79.82 Long term (current) use of aspirin; Z79.4 Long term (current) use of insulin; Z87.891 Personal history of nicotine dependence; I10 Essential (primary) hypertension; F32.9 Major depressive disorder, single episode, unspecified; E78.5 Hyperlipidemia, unspecified; Z51.5 Encounter for palliative care; E11.65 Type 2 diabetes mellitus with hyperglycemia; N40.0 Benign prostatic hyperplasia without lower urinary tract symptoms

== ENCOUNTER 2016-09-02 22:14 | Emergency (ER) | payer MEDICARE, OTHER ==
[~2016-09-02] VITALS: Ht 180.3 cm; Wt 80.0 kg
[~2016-09-02 22:14] MED LIST changes: +AMLO5TAB2 PO; +ATOR40TA69 PO; -CARV12.52 PO; +CARV6.252 PO; -INSU100I13 SUBQ; +INSU100V7 SUBQ; +LISI-571 PO; -MAGN400C PO; +MIRT15TA6 PO; -RIVA20TA PO; -TAMS0.4C29 PO; +TAMS0.4C98 PO; +TEMA15CA3 PO; -ZLP10T PO
[2016-09-02 22:15] VITALS: BP 149/65; PULSE 65; RESP 20; O2SAT 95
[2016-09-02 22:44] LABS: BASOPHILS % (AUTO) 0.6 % (0-3); EOSINOPHILS % (AUTO) 1.8 % (0-5); MONOCYTES % (AUTO) 9.6 % (4-12); Mean Corpuscular Hemoglobin 32.5 pg (27.0-35.0); Mean Corpuscular Volume 92.2 fL (81-100); NEUTROPHILS % (AUTO) 71.7 % (40-74); Platelet Count 181 bil/L (150-400)
[2016-09-02 22:45] VITALS: BP 135/52; PULSE 66; RESP 17; O2SAT 95
--- NOTE | 2016-09-02 22:56 | ED.REPORT ---
HPI-Chest Pain 40 and Over Date of Service September 02, 2016 ED Provider: Ceasar Hussein MD Pt is a 71 y.o. male with a hx of MS, CHF, DM, and HTN who presents to the c/o left chest pain onset today. Pt states that the chest pain began in the afternoon but he only "really noticed it" when he was going to bed. He denies associated nausea, vomiting, constipation, diarrhea, dark stool, diaphoresis, cough, and SOB. He states that the pain is now similar to when he had a broken rib. Nursing Notes Stated Complaint: CHEST PAIN Chief Complaint: Chest Pain Nursing Notes Reviewed: Yes Allergies: Coded Allergies: codeine (Verified Adverse Reaction, Mild, STOMACH UPSET, 09/02/16) patient has been taking cough syrup with codeine and is not suffering from side effects per patient report. Scheduled Amlodipine (Amlodipine) 5 Mg Tablet 10 MG PO DAILY Aspirin (Aspirin) 325 Mg Tablet.dr 325 MG PO DAILY Atorvastatin Calcium (Atorvastatin Calcium) 40 Mg Tablet 40 MG PO HS Carvedilol (Carvedilol) 6.25 Mg Tablet 6.25 MG PO BID Furosemide (Furosemide) 40 Mg Tablet 40 MG PO DAILY Insulin Glargine (Lantus U100 Insulin Vial) 100 Unit/Ml Vial 35 UNIT SUBQ HS Lisinopril (Lisinopril) 5 Mg Tablet 5 MG PO DAILY Mirtazapine (Mirtazapine) 15 Mg Tablet Unknown Dose PO DAILY Tamsulosin (Flomax) 0.4 Mg Capsule 0.4 MG PO DAILY Scheduled PRN Hydrocodone-Acetaminophen 5-325 mg (Hydrocodone-Acetaminophen 5-325 mg) 1 Each Tablet 1 TABLET PO Q4H PRN PRN For Pain Ondansetron ODT (Ondansetron ODT) 8 Mg Tab.rapdis 8 MG PO QID PRN PRN For Nausea Temazepam (Restoril) 15 Mg Capsule 30 MG PO HS PRN PRN Insomnia General Time Seen by MD: 22:51 Chief Complaint Chest pain Hx Obtained From: Patient Arrived By: Walk-in Sudden in Onset?: Yes Onset Occurred: 9 - 12 hours ago Symptom Duration: Since onset Past Medical History Past Medical History Notes: Heart catheterization from September 15, 2014: Did not have disease that warranted intervention other than medical therapy. Past Medical History CHF MS Aortic insufficiency Pulmonary HTN Patent foramen ovale Reports: Cancer, Diabetes mellitus, Hyperlipidemia, Hypertension Past Surgical History Heart catheterization 09/15/14 left ear surgery left knee surgery left finger surgery Reports: Back/neck surgery Smoking History Former Smoker Social History Drug Use: Meth, THC Other Social History: , Local resident Ambulatory Status Independent Review of Systems Respiratory: Denies: Shortness of breath Cardiovascular: Reports: Chest pain GI: Denies: Bloody/tarry stool, Constipation, Diarrhea, Nausea, Vomiting Complete sys rev & neg: except as marked. Physical Exam Initial Vital Signs Vital Signs (First) Date Time Temp Pulse Resp B/P Pulse Ox O2 Delivery O2 Flow Rate FiO2 09/02/16 22:15 36.0 65 20 149/65 95 Room Air Initial VS: Reviewed Head / Eyes: Atraumatic, Normocephalic Extremities: Vascular intact, Neuro intact Skin: Warm, Dry, No cyanosis Neurologic: Alert, Oriented, Nonfocal Psychiatric: Mood/affect normal, Behavior normal, Normal thought content General/Constitutional: Awake, Alert, No acute distress, Well appearing, Well developed, Well hydrated, Well nourished, Not toxic appearing Respiratory / Chest: Atraumatic, Breath sounds NL, Breath sounds = bilat, No respiratory distress, No wheezing Cardiovascular: Heart rate NL, Regular rhythm, Heart sounds NL, Peripheral circulation NL Abdomen: Atraumatic, Soft, Non-tender, No distention Bowel Sounds / Distention: Positive: Bowel sounds hyperactive Interpretation & Diagnostics Lab Results Interpretation Result Diagram: 09/02/16222709/02/162227 Test 09/02/16 22:28 White Blood Count 8.8th/mm3 (3.8-10.1) Red Blood Count 4.86mil/mm3 (4.40-5.80) Hemoglobin 15.8g/dL (13.8-17.2) Hematocrit 44.8% (41.0-50.0) Mean Corpuscular Volume 92.2fL (81-100) Mean Corpuscular Hemoglobin 32.5pg (27.0-35.0) Mean Corpuscular Hemoglobin Concent 35.3% (32.0-37.0) Red Cell Distribution Width 12.3% (12.3-15.4) Platelet Count 181bil/L (150-400) Neutrophils (%) (Auto) 71.7% (40-74) Lymphocytes (%) (Auto) 16.0% (14-46) Monocytes (%) (Auto) 9.6% (4-12) Eosinophils (%) (Auto) 1.8% (0-5) Basophils (%) (Auto) 0.6% (0-3) D-Dimer 0.72mg/L FEU (<0.50) Sodium Level 137mEq/L (134-144) Potassium Level 4.5mEq/L (3.5-5.2) Chloride Level 97mEq/L (97-108) Carbon Dioxide Level 22mmol/L (18-29) Blood Urea Nitrogen 46mg/dL (8-27) Creatinine 1.65mg/dL (0.76-1.27) Estimat Glomerular Filtration Rate 44mL/min (>59) Glucose Level 207mg/dL (60-99) Calcium Level 9.1mg/dL (8.5-10.1) Magnesium Level 1.8mg/dL (1.6-2.6) Total Bilirubin 0.2mg/dL (0.0-1.2) Aspartate Amino Transf (AST/SGOT) 39U/L (0-50) Alanine Aminotransferase (ALT/SGPT) 23U/L (0-44) Alkaline Phosphatase 109U/L (25-160) Troponin T 0.030ug/L (0.0-0.011) Total Protein 7.2g/dL (6.4-8.4) Albumin 3.8g/dL (3.4-5.0) Hold Coleman Top Tube Received (Received) ECG Interpretation Time: 22:26 Interpreted by: ED physician Normal ECG Interpretation: Normal rate (68), Normal sinus rhythm, No change from prior ECGs (08/28/16) BMP / CMP Interpretation Creatinine elevated Cardiac / Vascular Lab Interp Troponin abnormal, D-Dimer elevated X-Ray Chest Interpretation Chest Xray Interpretation: IMPRESSION: No acute cardiopulmonary disease. Interpretation / Wet Read by: Wet read ED physician CT Chest Interpretation IMPRESSION: No acute occlusive PE. Atherosclerotic disease. Other findings above. Radiologist: Cate Pierre MD CT Abd / Pelvis Interpretation IMPRESSION: Nonspecific enteritis pattern and mild ileus morphology. No appendicitis or diverticulitits. Other findings above. Please see final report for other non-emergent incidental findings. Radiologist: Cate Pierre MD Re-Eval/Medical Decision Med Decision/Clinical Course 71-year-old with shortness of breath and chest and abdominal pain, which does not sound cardiac. His EKG is baseline and abnormal. His d-dimer is elevated. CT angiogram was negative for clot. Chronic enzymes are negative. Abdomen is mild tenderness to palpation, and CT shows ileus. No other abnormal findings. Clear liquid diet recommended. Zofran for nausea. Discharged home in stable condition for follow-up with PCP. Source of Hx: Old records Counseled Regarding: Diagnosis, Lab results, Need for follow-up, When/why to return to ED Discharge & Departure Primary Impression: Non-cardiac chest pain Additional Impression: Ileus Disposition: Home Discharge Condition All VS Reviewed: Yes Condition: Improved Additional Instructions: Clear fluids and advance slowly as tolerated. Zofran if needed for nausea. May use Vicodin briefly if needed for pain. Follow-up with your doctor in the office. Follow-up the residency clinic if you need a local doctor. Return if your pain is worsening despite treatment. Referrals: NOPCP (PCP) [facility] Roger Attestation Portions of this note were transcribed by Antionette Pinzon. I, Dr. Hussein personally performed the history, physical exam and medical decision-making; I reviewed and confirmed the accuracy of the information in the transcribed note. Signed by: Roger Bañuelos, 09/03/16 and 0424. copies to: [facility] Ceasar Hussein MD September 02, 2016 22:56 ANTIONETTE PINZON September 02, 2016 23:03
[2016-09-02 23:00] VITALS: BP 135/56; PULSE 66; RESP 18; O2SAT 96
[2016-09-02 23:23] LABS: Magnesium 1.8 mg/dL (1.6-2.6)
[2016-09-02 23:24] LABS: TROPONIN T 0.03 ug/L (0.0-0.011)
[2016-09-02 23:44] VITALS: BP 133/52; PULSE 64; RESP 17; O2SAT 95
[2016-09-03] MEDS ORDERED: HYDROcodone-APAP 5-325 mg Tablet PO ONE (00:20)
[2016-09-03] MEDS ORDERED: HYDR-4003 PO (02:29)
[2016-09-03] MEDS ORDERED: ONDA8TAB10 PO (02:29)
[2016-09-03 03:05] VITALS: BP 160/59; PULSE 69; RESP 18; O2SAT 95
--- NOTE | 2016-09-03 08:44 | DRSVH ---
PROCEDURE: CT ANGIO CHEST PULMONARY EMBOLISM ([id number]) INDICATIONS: sob, chest pain, elevated dimer TECHNIQUE: After the administration of intravenous contrast, 2 mm thick sections acquired from the pulmonary api matt to the posterior costophrenic angles. 3-dimensional maximum intensity projection (MIP) coronal a nd sagittal reformats were then acquired through the thorax. For radiation dose reduction, the follo wing was used: automated exposure control, adjustment of mA and/or kV according to patient size. COMPARISON: None. FINDINGS: Image quality: Excellent. Pulmonary arteries: Pulmonary arteries are normal in size, and demonstrate no intraluminal filling d efects to suggest central pulmonary embolism. Lungs and pleura: Lungs are clear. No pleural effusions or pneumothorax. Central and peripheral ai rways are patent. Mediastinum: Heart size is enlarged, without pericardial effusion. No mediastinal or hilar adenopat hy. Thoracic demonstrates mild aneurysmal prominent in the ascending portion measuring 42 mm in hart sverse dimension. No priors are available for comparison. Esophagus is normal in caliber, with minima l hiatal hernia. Bones and chest wall: No suspicious bony lesions. Ribs and thoracic spine appear intact throughout. Thyroid gland is unremarkable. No axillary or supraclavicular adenopathy. Abdomen: Visualized upper abdominal solid organs appear normal in the early arterial phase of enhanc ement. IMPRESSION: 1. No pulmonary embolus. Lungs are clear. 2. Mild asscending thoracic aorta aneurysm. Recommend continued interval followup to document stabili ty. Dictated by: Felicia Infante M.D. on 09/03/2016 at 8:40 Approved by: Felicia Infante M.D. on 09/03/2016 at 8:43
--- NOTE | 2016-09-03 08:49 | DRSVH ---
PROCEDURE: CT ABDOMEN AND PELVIS WITH CONTRAST ([id number]) INDICATIONS: sob, chest pain, elevated dimer TECHNIQUE: After the administration of intravenous contrast, 5 mm thick sections acquired from the diaphragm to the symphysis. 5 mm coronal and sagittal reformats were acquired. For radiation dose reduction, the following was used: automated exposure control, adjustment of mA and/or kV according to patient siz e. COMPARISON: None. FINDINGS: Image quality: Excellent. ABDOMEN: Lung bases: Lung bases are clear. Heart size is minimally enlarged. Solid organs: Liver and spleen are normal in size and enhancement. Gallbladder is unremarkable. Bi liary system is non dilated. Pancreas enhances normally. No adrenal nodules. Kidneys are atrophic with lobulated appearances bilaterally. Nonobstructing renal calculi are present bilaterally.. Peritoneum and bowel: Small bowel demonstrates scattered loops of mild fluid-filled prominence. No fr ee fluid or air. Colonic diverticula are present without associated inflammatory change. Nodes and vessels: No retroperitoneal or mesenteric adenopathy by size criteria. Aorta and inferior vena cava are normal in size. Miscellaneous: No ventral hernias. Trace hiatal hernia. PELVIS: Genitourinary: Bladder wall thickness is normal. Miscellaneous: Fat-containing bilateral inguinal hernias are present. 11 mm right gluteus lipoma is p resent. Bones: No suspicious bony lesions. No vertebral body compression fractures. Posterior fusion from L3-S1 is present. IMPRESSION: 1. Nonspecific scattered fluid-filled prominence of several small bowel loops. This could be reflecti ve of enteritis and/or ileus. Dictated by: Felicia Infante M.D. on 09/03/2016 at 8:43 Approved by: eFlicia Infante M.D. on 09/03/2016 at 8:48
--- NOTE | 2016-09-03 09:27 | DRSVH ---
PROCEDURE: X-RAY CHEST ONE VIEW, PORTABLE ([id number]) INDICATIONS: CHEST PAIN TECHNIQUE: One view of the chest was acquired. COMPARISON: [facility], CR, XR CHEST 1VW (PORTABLE), 08/26/2016, 11:27. FINDINGS: Surgical changes and devices: None. Lungs and pleura: No pleural effusions or pneumothorax. Lungs are clear. Mediastinum: Mediastinal contours appear normal. Heart size is normal. Bones and chest wall: No suspicious bony lesions. Overlying soft tissues appear unremarkable. IMPRESSION: No acute pulmonary proces. Dictated by: Felicia Infante M.D. on 09/03/2016 at 9:24 Approved by: Felicia Infante M.D. on 09/03/2016 at 9:25
== END 2016-09-03 03:08 | disposition home or self-care (01) ==
LOC: SED 22:14
DX: R07.89 Other chest pain (principal); K56.7 Ileus, unspecified; I25.2 Old myocardial infarction; I50.9 Heart failure, unspecified; E11.9 Type 2 diabetes mellitus without complications; I10 Essential (primary) hypertension; E78.5 Hyperlipidemia, unspecified; Z87.891 Personal history of nicotine dependence; Z88.5 Allergy status to narcotic agent; Z79.82 Long term (current) use of aspirin; Z79.4 Long term (current) use of insulin
CPT/HCPCS: 36415; 71010; 71275; 74177; 80053; 83735; 84484; 85025; 85378; 93005; 99285; Q9967

== ENCOUNTER 2016-11-11 16:43 | Inpatient (IN) | payer MEDICARE, OTHER ==
[~2016-11-11] VITALS: Ht 177.8 cm; Wt 81.9 kg
[~2016-11-11 16:43] MED LIST changes: +HYDR-4003 PO; +ONDA8TAB10 PO
[2016-11-11 16:50] VITALS: BP 147/64; PULSE 75; RESP 16; O2SAT 97
[2016-11-11 18:53] VITALS: BP 127/67; PULSE 73; RESP 16; O2SAT 97
--- NOTE | 2016-11-11 19:00 | ED.REPORT ---
HPI-Extremity Problem Upper Date of Service Nov 11, 2016 ED Provider: Doc,Ed MD History of Present Illness: started 11/06. went to the clinic in [place] on 11/09, given antibiotics taking it twice a day. left hand dominant. left elbow swelling and pain. was able to eat yesterday, not today. antibiotics filled at [facility] in [place] 11/24 with movement. Denies trauma Nursing Notes Stated Complaint: LEFT ARM PAIN/SWELLING Chief Complaint: Extremity Trauma Nursing Notes Reviewed: Yes Allergies: Coded Allergies: codeine (Verified Adverse Reaction, Mild, STOMACH UPSET, 11/11/16) patient has been taking cough syrup with codeine and is not suffering from side effects per patient report. Scheduled Amlodipine (Amlodipine) 5 Mg Tablet 10 MG PO DAILY Aspirin (Aspirin) 325 Mg Tablet.dr 325 MG PO DAILY Atorvastatin Calcium (Atorvastatin Calcium) 40 Mg Tablet 40 MG PO HS Carvedilol (Carvedilol) 6.25 Mg Tablet 6.25 MG PO BID Furosemide (Furosemide) 40 Mg Tablet 40 MG PO DAILY Insulin Glargine (Lantus U100 Insulin Vial) 100 Unit/Ml Vial 35 UNIT SUBQ HS Lisinopril (Lisinopril) 5 Mg Tablet 5 MG PO DAILY Mirtazapine (Mirtazapine) 15 Mg Tablet Unknown Dose PO DAILY Tamsulosin (Flomax) 0.4 Mg Capsule 0.4 MG PO DAILY Scheduled PRN Hydrocodone-Acetaminophen 5-325 mg (Hydrocodone-Acetaminophen 5-325 mg) 1 Each Tablet 1 TABLET PO Q4H PRN PRN For Pain Ondansetron ODT (Ondansetron ODT) 8 Mg Tab.rapdis 8 MG PO QID PRN PRN For Nausea Temazepam (Restoril) 15 Mg Capsule 30 MG PO HS PRN PRN Insomnia General Time Seen by MD: 18:59 Chief Complaint Elbow injury left Hx Obtained From: Patient Onset Occurred: 1 week ago Symptom Duration: Since onset Past Medical History Past Medical History Notes: Heart catheterization from September 15, 2014: Did not have disease that warranted intervention other than medical therapy. Past Medical History CHF [place] Aortic insufficiency Pulmonary HTN Patent foramen ovale Reports: Cancer, Diabetes mellitus, Hyperlipidemia, Hypertension Past Surgical History Heart catheterization 09/15/14 left ear surgery left knee surgery left finger surgery Reports: Back/neck surgery Smoking History Former Smoker Social History Drug Use: Meth, THC Other Social History: , Local resident Occupation no work or school 11/11/2016 Ambulatory Status Independent Review of Systems Basic Review of Systems Eyes: Vision NL, No discharge : No dysuria, No frequency Psychiatric: Normal thought content Physical Exam Initial Vital Signs Vital Signs (First) Date Time Temp Pulse Resp B/P Pulse Ox O2 Delivery O2 Flow Rate FiO2 11/11/16 16:50 37.1 75 16 147/64 97 Room Air Initial VS: Reviewed, Vital signs normal General/Constitutional: Well-developed, Well-nourished Head / Eyes: Atraumatic, Normocephalic, PERRL ENT: Mucous membranes moist, Conjunctiva normal, No scleral icterus Neck: Supple, Non-tender, Full range of motion Respiratory: Breath sounds normal, Clear to auscultation, No respiratory distress Cardiovascular: Regular rate & rhythm, Heart sounds normal, Intact distal pulses Abdomen / GI: Soft, Non-tender, No guarding, No rebound, No distention Back: No CVA tenderness Lymphatic: No lymphadenopathy Lower Extremities: Vascular intact, Neuro intact, No swelling, No tenderness Skin: Warm, Dry, No cyanosis Neurologic: Alert, Oriented, Nonfocal Psychiatric: Mood/affect normal, Behavior normal, Normal thought content General/Constitutional: Awake, Alert, Well appearing, Well developed, Well hydrated Distress / Hydration: Positive: Distress moderate Respiratory / Chest: Atraumatic, Breath sounds NL, Breath sounds = bilat on recheck 2009 patient c/o of sudden onset of left sided chest pain 5/10 troponin and EKG ordered Cardiovascular: Heart rate NL, Regular rhythm, Heart sounds NL, No gallop left elbow with diffuse swelling and erthyma. patient with exquisite tenderness to movement of elbow. X-ray does show joint effusion. Labs have mild increase in wbc at 10.3 but with elevated sed and CRP Interpretation & Diagnostics Interpretation & Diagnostics: us does not show any clot formation but does show possible fluid acculumtation near or in joint, official report pending. Lab Results Interpretation Result Diagram: 11/11/16194211/11/161942 Test 11/11/16 19:43 White Blood Count 10.3th/mm3 (3.8-10.1) Red Blood Count 4.94mil/mm3 (4.40-5.80) Hemoglobin 15.4g/dL (13.8-17.2) Hematocrit 45.6% (41.0-50.0) Mean Corpuscular Volume 92.3fL (81-100) Mean Corpuscular Hemoglobin 31.2pg (27.0-35.0) Mean Corpuscular Hemoglobin Concent 33.8% (32.0-37.0) Red Cell Distribution Width 12.5% (12.3-15.4) Platelet Count 241bil/L (150-400) Neutrophils (%) (Auto) 74.8% (40-74) Lymphocytes (%) (Auto) 13.0% (14-46) Monocytes (%) (Auto) 11.2% (4-12) Eosinophils (%) (Auto) 0.6% (0-5) Basophils (%) (Auto) 0.2% (0-3) Erythrocyte Sedimentation Rate 52mm/hr (0-30) Sodium Level 139mEq/L (134-144) Potassium Level 4.4mEq/L (3.5-5.2) Chloride Level 99mEq/L (97-108) Carbon Dioxide Level 22mmol/L (18-29) Blood Urea Nitrogen 30mg/dL (8-27) Creatinine 1.63mg/dL (0.76-1.27) Estimat Glomerular Filtration Rate 45mL/min (>59) Glucose Level 132mg/dL (60-99) Lactic Acid Level 1.3mmol/L (0.4-2.0) Calcium Level 10.0mg/dL (8.5-10.1) Total Bilirubin 0.7mg/dL (0.0-1.2) Aspartate Amino Transf (AST/SGOT) 22U/L (0-50) Alanine Aminotransferase (ALT/SGPT) 13U/L (0-44) Alkaline Phosphatase 114U/L (25-160) C-Reactive Protein 20.0mg/dL (0.0-0.5) Total Protein 8.4g/dL (6.4-8.4) Albumin 3.5g/dL (3.4-5.0) X-Ray Interpretation Xray Interpretation: PROCEDURE: X-RAY LEFT ELBOW COMPLETE, MINIMUM THREE VIEWS ([id number]) INDICATIONS: 71 year-old male with left elbow pain and swelling, without trauma. TECHNIQUE: 3 views of the elbow were acquired. COMPARISON: None. FINDINGS: Bones: No fractures or dislocations. Olecranon degenerative enthesophyte is present. No suspicious bony lesions. Soft tissues: There is elbow joint effusion, with anterior and posterior fat pad elevation. No suspicious soft tissue calcifications. IMPRESSION: Left elbow joint effusion is of uncertain etiology in the absence of any recent trauma. Dictated by: David Warner M.D. on 11/11/2016 at 19:35 Approved by: David Warner M.D. on 11/11/2016 at 19:37 Re-Eval/Medical Decision Med Decision/Clinical Course 71 year old male presents for evualation of increasing left elbow pain and swelling. Patient was seen at [place] and provided antibiotics 2 days ago. He reports he was able to feed himself yesterday but was unable to today because of the increase in pain. X-ray indicates elbow effusion. Discussed with Dr. Wyatt, will need joint tapped. Patient just recently c/o of chest pain 08/24 which started while in the ER at 2009. INformed Dr. Wyatt, EKG and troponin ordered. Dr. Wyatt to assume care of patient Discharge & Departure Impression: Primary Impression: Septic arthritis of elbow, left Septic arthritis organism: due to unspecified organism Qualified Code: M00.9 - Pyogenic arthritis, unspecified Additional Impression: Chest pain Chest pain type: unspecified Qualified Code: R07.9 - Chest pain, unspecified Disposition: ADMITTED TO HOSPITAL Referrals: ALBERTO HERRERA DO (PCP) EDSupervising Provider for APC: Frank Wyatt MD copies to: ALBERTO HERRERA Sue ARNP Nov 11, 2016 19:00
[2016-11-11] MEDS ORDERED: cefTRIAXone Inj 2,000 MG in Dextrose 5% Minibag Plus 50 ML IV ONE (19:10)
--- NOTE | 2016-11-11 19:39 | DRSVH ---
PROCEDURE: X-RAY LEFT ELBOW COMPLETE, MINIMUM THREE VIEWS ([id number]) INDICATIONS: 71 year-old male with left elbow pain and swelling, without trauma. TECHNIQUE: 3 views of the elbow were acquired. COMPARISON: None. FINDINGS: Bones: No fractures or dislocations. Olecranon degenerative enthesophyte is present. No suspicious bony lesions. Soft tissues: There is elbow joint effusion, with anterior and posterior fat pad elevation. No suspi cious soft tissue calcifications. IMPRESSION: Left elbow joint effusion is of uncertain etiology in the absence of any recent trauma. Dictated by: David Warner M.D. on 11/11/2016 at 19:35 Approved by: David Warner M.D. on 11/11/2016 at 19:37
[2016-11-11 19:57] LABS: BASOPHILS % (AUTO) 0.2 % (0-3); EOSINOPHILS % (AUTO) 0.6 % (0-5); MONOCYTES % (AUTO) 11.2 % (4-12); Mean Corpuscular Hemoglobin 31.2 pg (27.0-35.0); Mean Corpuscular Volume 92.3 fL (81-100); NEUTROPHILS % (AUTO) 74.8 % (40-74); Platelet Count 241 bil/L (150-400)
[2016-11-11 20:12] LABS: ERYTHROCYTE SEDIMENTATION RATE 52 mm/hr (0-30)
[2016-11-11] MEDS ORDERED: Ondansetron 2 mg/mL 2 mL Inj IVPUSH ONE (20:30)
[2016-11-11] MEDS ORDERED: HYDROmorphone 0.5 mg/0.5 mL iSecure Syringe IVPUSH ONE (20:30)
--- NOTE | 2016-11-11 20:47 | DRSVH ---
PROCEDURE: US VENOUS ARM DUPLEX UNILATERAL, LEFT INDICATIONS: 71 year-old male with left arm pain and swelling. TECHNIQUE: Real-time imaging, as well as color and pulse Doppler interrogation, was performed of the left upper extremity deep veins from the inferior neck to the antecubital fossa. COMPARISON: None. FINDINGS: The internal jugular vein, visualized portions of the subclavian vein, axillary, and brach ial veins are free of intraluminal thrombus. Where physically possible, the veins are normally compr essible. Color and pulse Doppler demonstrate normal intraluminal flow, with expected phasicity and p ulsatility. Additional scanning of the cephalic and basilic veins of the superficial system demonstr ate normal compressibility, without thrombus. In the dorsal elbow region, 2.9 x 2.7 x 1.4 cm irregula r fluid collection is noted. IMPRESSION: 1. No sonographic evidence for left upper extremity deep venous thrombosis. 2. 2.9 x 2.7 x 1.4 cm posterior left elbow region fluid collection may represent olecranon bursitis v ersus posterior portion of sizable elbow joint effusion. Dictated by: David Warner M.D. on 11/11/2016 at 20:42 Approved by: David Warner M.D. on 11/11/2016 at 20:45
[2016-11-11 22:23] VITALS: BP 91/53; PULSE 70; RESP 16; O2SAT 94
[2016-11-12] VITALS (8 sets, daily range): BP systolic 115–165; BP diastolic 40–72; PULSE 54–64; RESP 16–20; O2SAT 95–98
[2016-11-12 01:14] LABS: BFWBC 123250 /mm3
[2016-11-12 01:20] LABS: MONOCYTES,BODY FLUID 6 %; OTHER CELLS,BODY FLUID 0
[2016-11-12] MEDS ORDERED: Vancomycin Inj 1,000 MG in IV Premix 1 EACH IV ONE (01:35)
[2016-11-12] MEDS ORDERED: Cefepime Inj 2,000 MG in Dextrose 5% Minibag Plus 100 ML IV ONE (01:35)
[2016-11-12] MEDS ORDERED: cefTRIAXone Inj 1,000 MG in Dextrose 5% Minibag Plus 50 ML IV SCH ×2 (01:40→21:00)
[2016-11-12] MEDS ORDERED: Ondansetron 2 mg/mL 2 mL Inj IVPUSH PRN (01:40)
[2016-11-12] MEDS ORDERED: Polyethylene Glycol (PEG) 17 Gm Powder PO PRN (01:40)
[2016-11-12] MEDS ORDERED: Alum-Mag Hydrox-Simeth 30 mL Suspension PO PRN (01:40)
[2016-11-12] MEDS ORDERED: HYDROmorphone 1 mg/mL Inj IVPUSH PRN (01:45)
[2016-11-12] MEDS: 0.9% Sodium Chloride 1,000 ML IV SCH ×2 (03:10→15:20)
[2016-11-12] MEDS ORDERED: CITA10TA9 PO (03:20)
--- NOTE | 2016-11-12 04:02 | PCM.HPMED ---
Subjective Date of Service Nov 12, 2016 Primary Provider: Admitting Physician: Primary Care Physician: Ulysses Rolle DO Attending Physician: Admit Status: From the Emergency Department, Full Admit Chief Complaint: Left elbow pain and swelling History of Present Illness: Taj Garcia is a 71 yo man with Coronary artery disease, Gout, Diabetes and Hypertension who presents to [facility] emergency department with complaints of left elbow pain Patient reported pain started on 11/06, located in the left elbow with associated pain on movement, denies any trauma. Patient was elevated in a clinic in [place] and was given antibiotics but the swelling and pain worsened. Denies any fever or chills. Case discussed with Dr Wyatt. elbow drained and antibiotics started. they left a message for Ortho consult in the morning Review of Systems: Pertinent positives as noted in HPI. All other systems were reviewed and are negative Allergies Coded Allergies: codeine (Verified Adverse Reaction, Mild, STOMACH UPSET, 11/11/16) patient has been taking cough syrup with codeine and is not suffering from side effects per patient report. Home Medications Need to be consolidated, [facility] in [place] PMH Coronary artery disease. Heart catheterization from September 15, 2014: Did not have disease that warranted intervention other than medical therapy. Chronic Congestive heart failure Aortic insufficiency Pulmonary HTN Patent foramen ovale Gout Diabetes mellitus Hyperlipidemia Hypertension . Surgical History Knee surgery Colonoscopy Heart catheterization 09/15/14 left ear surgery left finger surgery Back/neck surgery Family History Aunt had Colon Cancer Social History Hx Alcohol Use: Yes Hx Substance Use: Yes ("I've done all the drugs you can think of" Former Meth user) Hx Tobacco Use: Yes Smoking Status: Former Smoker Living Arrangement: with Family Exam Vital Signs Vital Sign - Last Date Time Temp Pulse Resp B/P Pulse Ox O2 Delivery O2 Flow Rate FiO2 11/11/16 22:23 70 16 91/53 94 Room Air 11/11/16 18:53 37.3 Exam General: Alert, Oriented X3, Cooperative, No acute Distress Eyes: PERRLA, Scleral Anicteric Mouth: Mouth Normal, Mucous Membranes Moist/[place] Neck: Supple, no Thyromegaly, trachea central. Chest & Lungs: Clear to auscultation & percussion, No adventitious breath sounds, no crackles, no wheeze Cardiovascular: Normal S1, Normal S2, No Murmurs/Rubs/Gallops, Regular Rate/ Rhythm (No JVD, no peripheral edema) Pulses: Radial (present and equal), Dorsalis Pedi (present and equal) Abdomen: Soft, Non-tender, Non-distended, Normoactive bowel tones. Musculoskeletal: Unremarkable. Normal range of motion, Extremities left elbow with diffuse swelling and erythema. patient with exquisite tenderness to movement of elbow Skin: No rashes. Warm and dry, no erythematous areas Neurological: Grossly neurologically intact, Normal Speech, Sensation Intact Lymphatic: Lymph nodes Cervical and Axillary not palpable Lab and Diagnostics Labs Laboratory Tests Test 11/11/16 19:43 11/12/16 00:20 White Blood Count 10.3th/mm3 (3.8-10.1) Red Blood Count 4.94mil/mm3 (4.40-5.80) Hemoglobin 15.4g/dL (13.8-17.2) Hematocrit 45.6% (41.0-50.0) Mean Corpuscular Volume 92.3fL (81-100) Mean Corpuscular Hemoglobin 31.2pg (27.0-35.0) Mean Corpuscular Hemoglobin Concent 33.8% (32.0-37.0) Red Cell Distribution Width 12.5% (12.3-15.4) Platelet Count 241bil/L (150-400) Neutrophils (%) (Auto) 74.8% (40-74) Lymphocytes (%) (Auto) 13.0% (14-46) Monocytes (%) (Auto) 11.2% (4-12) Eosinophils (%) (Auto) 0.6% (0-5) Basophils (%) (Auto) 0.2% (0-3) Erythrocyte Sedimentation Rate 52mm/hr (0-30) Sodium Level 139mEq/L (134-144) Potassium Level 4.4mEq/L (3.5-5.2) Chloride Level 99mEq/L (97-108) Carbon Dioxide Level 22mmol/L (18-29) Blood Urea Nitrogen 30mg/dL (8-27) Creatinine 1.63mg/dL (0.76-1.27) Estimat Glomerular Filtration Rate 45mL/min (>59) Glucose Level 132mg/dL (60-99) Lactic Acid Level 1.3mmol/L (0.4-2.0) Calcium Level 10.0mg/dL (8.5-10.1) Total Bilirubin 0.7mg/dL (0.0-1.2) Aspartate Amino Transf (AST/SGOT) 22U/L (0-50) Alanine Aminotransferase (ALT/SGPT) 13U/L (0-44) Alkaline Phosphatase 114U/L (25-160) Troponin T 0.030ug/L (0.0-0.011) C-Reactive Protein 20.0mg/dL (0.0-0.5) Total Protein 8.4g/dL (6.4-8.4) Albumin 3.5g/dL (3.4-5.0) Body Fluid Source Synovial fluid Body Fluid Color Yellow (Clear) Body Fluid Appearance Turbid Body Fluid WBC 399783/mm3 Body Fluid RBC 2750/mm3 Body Fluid Polynuclear WBCs 94% Body Fluid Lymphocytes 0% Body Fluid Monocytes 6% Body Fluid Eosinophils 0% Body Fluid Basophils 0% Microbiology 11/11/16 Blood Culture, Received Pending Result Diagram: 11/11/16194211/11/161942 X-Rays, CTs and MRIs X-RAY LEFT ELBOW COMPLETE 11/11 IMPRESSION: Left elbow joint effusion is of uncertain etiology in the absence of any recent trauma. Dictated by: David Warner M.D. on 11/11/2016 at 19:35 Approved by: David Warner M.D. on 11/11/2016 at 19:37 US VENOUS ARM DUPLEX UNILATERAL, LEFT 11/11 IMPRESSION: 1. No sonographic evidence for left upper extremity deep venous thrombosis. 2. 2.9 x 2.7 x 1.4 cm posterior left elbow region fluid collection may represent olecranon bursitis versus posterior portion of sizable elbow joint effusion. Dictated by: David Warner M.D. on 11/11/2016 at 20:42 Approved by: David Warner M.D. on 11/11/2016 at 20:45 Assessment & Plan Taj Garcia is a 71 yo man with Coronary artery disease, Gout, Diabetes and Hypertension who presents to [facility] emergency department with complaints of left elbow pain 1. Left elbow swelling and pain. Present on admission Likely septic arthritis. Differential diagnosis Gout or Pseudogout, Rheumatoid arthritis. ESR and CRP elevated - continue Ceftriaxone for empiric antibiotics - Orthopedic surgery consult - consider Infectious disease help 2 Elevated troponin. Present on admission Possible demand ischemia or from renal failure - trending troponin overnight - complete echo 3 Acute Kidney injury. Present on admission - Likely pre renal with hypovolemia - continue IV fluids - avoid nephrotoxic insults 4 Coronary artery disease No anginal symptoms - continue Aspirin 5 Gout - checking Uric acid - Acetaminophen as needed for mild pain/fever/headache - Bowel regimen as needed - Antiemetic as needed Patient admitted under inpatient status with expected length of stay > 2 midnights for severity of present symptoms, complexities of treatment plan and risk for adverse event . Resuscitation Status: CPR: Attempt Resuscitation Jd Mcginnis MD Nov 12, 2016 01:49 Jd Mcginnis MD Nov 12, 2016 01:49
--- NOTE | 2016-11-12 06:20 | NUR ---
Admit PT admitted for possible septic L eye per MD noted. Elbow was aspirated in ED and there is a bandaid in place. There is some redness around site. PT reports pain at 4/10, but only with movement of elbow. No pain at rest. Assessment is otherwise benign. PT placed on CUSTOMER ORDER CLERK for high GERARD risk. HR is bradycardic as low as 48. PT reports bradycardia at baseline. IV abx infused per order. NS at 100. PT has not voided yet and UA has not been done at this time. PT afebrile. Will continue with current poc and monitor for any A/R or change in condition.
[2016-11-12] MEDS: Heparin 5,000 Unit/mL Inj SUBQ SCH ×2 (08:48→16:11)
[2016-11-12 10:31] LABS: APPEARANCE,URINE CLEAR (CLEAR,HAZY); COLOR,URINE YELLOW (YELLOW); OCCULT BLOOD,URINE NEGATIVE (NEGATIVE); PH,URINE 5.5 (5.0-8.0); UROBILINOGEN,URINE NORMAL (NORMAL)
--- NOTE | 2016-11-12 12:11 | CONS ---
[address] [address] CONSULTATION REPORT PATIENT: JENNYFER GLOVER : 1945 MR#: [id number] ADMIT: 11/12/2016 JOB ID: [id number] DATE OF SERVICE: 11/12/2016 CHIEF COMPLAINT: Left elbow pain. HISTORY OF PRESENT ILLNESS: The patient is a 71-year-old male who has had left elbow pain which has been present for about two weeks. He has not had any fevers or chills, but it has been quite painful, red, and swollen, and he was concerned by this. PAST MEDICAL HISTORY: Significant for gout, hypertension, diabetes, problems with liver and kidneys, former smoker. PHYSICAL EXAMINATION: His blood pressure 116/63, pulse rate 54, respirations 16, temperature 36.2. He is alert and cooperative, in no acute distress. His left elbow has range of motion of about 20-100 degrees and no significant effusion present today. There is some warmth and mild redness. No real erythema. He is able to move his fingers. His skin is intact. His radial pulses are +2. He has no pain with gentle passive range of motion of the left elbow. LABORATORY DATA: His laboratory evaluation shows monosodium urate crystals in his synovial fluid. His synovial fluid is quite abnormal, with 123,000 white blood cells and 94% PMNs on the tap from the emergency department. ASSESSMENT: Left elbow gouty arthritis. PLAN: Recommend discontinuing antibiotics and medical management for this. Discussed colchicine, Indocin, etc. or potentially prednisone. I do not see any need for acute surgical intervention at this time. His abnormal laboratory markers and elevated white blood cell count are all likely due to the acute gouty arthritis.
[2016-11-12] MEDS ORDERED: Glucose 40% Oral Gel 15 Gm Tube PO PRN (16:25)
--- NOTE | 2016-11-12 17:24 | NUR ---
Pain- Patient complained of 6/10 left elbow pain. Elbow is swollen and warm to touch. ROMEO bandage in place. Dilaudid 1 mg IV given with relief obtained.
[2016-11-12] MEDS: Insulin LISPRO 300 Unit/3 mL Inj SUBQ SCH ×2 (17:32→21:55)
[2016-11-12] MEDS ORDERED: _HYDROcodone/APAP 5-325 mg Tablet PO PRN (18:55)
[2016-11-12] MEDS: predniSONE 20 mg Tablet PO SCH (19:53)
[2016-11-12] MEDS: HYDROcodone-APAP 5-325 mg Tablet PO PRN (19:55)
[2016-11-12] MEDS: Insulin GLARgine 100 Unit/mL Syringe SUBQ SCH (20:02)
--- NOTE | 2016-11-12 23:16 | PCM.PNMED ---
Subjective Date of Service Nov 12, 2016 Subjective Patient is seen and examined. He is concerned about the swelling over the right elbow, explained to him that antibiotics will not help this kind of infection. He says he walks a little but does cannot walk very long, does not know why. Does not like Dilaudid, making him too "heady". Exam Vital Signs Vital Sign - Last Date Time Temp Pulse Resp B/P Pulse Ox O2 Delivery O2 Flow Rate FiO2 11/12/16 16:01 36.7 63 20 165/56 96 Room Air Intake and Output 11/11/16 11/11/16 11/12/16 Cumulative From/Thru 15:00 23:00 07:00 11/11/16 16:50 - 11/12/16 06:18 Intake Total 296 ml 296 ml Output Total 0 ml 0 ml Balance 296 ml 296 ml Intake Oral 0 ml 0 ml IV Total 296 ml 296 ml Output Urine Total 0 ml 0 ml # Bowel Movements 0 0 Exam General: Alert, Oriented X3, Cooperative, No acute Distress Eyes: PERRLA, Scleral Anicteric Mouth: Mouth Normal, Mucous Membranes Moist/[place] Neck: Supple, no Thyromegaly, trachea central. Chest & Lungs: Clear to auscultation & percussion, No adventitious breath sounds, no crackles, no wheeze Cardiovascular: Normal S1, Normal S2, No Murmurs/Rubs/Gallops, Regular Rate/ Rhythm (No JVD, no peripheral edema) Pulses: Radial (present and equal), Dorsalis Pedi (present and equal) Abdomen: Soft, Non-tender, Non-distended, Normoactive bowel tones. Musculoskeletal: Unremarkable. Normal range of motion, Extremities left elbow with diffuse swelling and erythema. Skin: No rashes. Warm and dry Neurological: No focal deficits IVs and Medications Medications Reviewed: Medications were reviewed in detail Lab and Diagnostics Result Diagram: 11/11/16 1943 11/12/16 1708 X-Rays, CTs and MRIs X-RAY LEFT ELBOW COMPLETE 11/11 IMPRESSION: Left elbow joint effusion is of uncertain etiology in the absence of any recent trauma. Dictated by: David Warner M.D. on 11/11/2016 at 19:35 Approved by: David Warner M.D. on 11/11/2016 at 19:37 US VENOUS ARM DUPLEX UNILATERAL, LEFT 11/11 IMPRESSION: 1. No sonographic evidence for left upper extremity deep venous thrombosis. 2. 2.9 x 2.7 x 1.4 cm posterior left elbow region fluid collection may represent olecranon bursitis versus posterior portion of sizable elbow joint effusion. Dictated by: David Warner M.D. on 11/11/2016 at 20:42 Approved by: David Warner M.D. on 11/11/2016 at 20:45 Assessment & Plan Taj Garcia is a 71 yo man with Coronary artery disease, Gout, Diabetes and Hypertension who presents to [facility] emergency department with complaints of left elbow pain 1. Left elbow swelling and pain. Secondary to gouty arthritis, present on admission Likely septic arthritis. Differential diagnosis Gout or Pseudogout, Rheumatoid arthritis. ESR and CRP elevated -- Aspirate culture showed gout crystals - discontinue Ceftriaxone for empiric antibiotics, not needed for gout - Orthopedic surgery consult: No surgery per Dr. Krause - consider Infectious disease help -- Switched him to morphine for pain -- colcrys and prednisone for acute gout flare up 2 Elevated troponin. Present on admission Possible demand ischemia or from renal failure - troponin overnight, stable - complete echo: not done yet 3 Acute Kidney injury. Present on admission - Likely pre renal with hypovolemia - continue IV fluids - avoid nephrotoxic insults 4 Coronary artery disease chronic active No anginal symptoms - continue Aspirin 5 Gout chronic active - checking Uric acid - Acetaminophen as needed for mild pain/fever/headache - Bowel regimen as needed - Antiemetic as needed Patient admitted under inpatient status with expected length of stay > 2 midnights for severity of present symptoms, complexities of treatment plan and risk for adverse event . Pain Evaluation: Adequate Pain Control Resuscitation Status: CPR: Attempt Resuscitation Time spent 25 min Lilly Diez DO Nov 12, 2016 18:59 Lilly Diez DO Nov 12, 2016 18:59
--- NOTE | 2016-11-12 23:39 | NUR ---
Pain Orders for pain medication changed due to pt history of IV drug use. Now receiving PO [place] for c/o 6 out of 10 left elbow pain. Initiated rhoda, pt states "he feels better, but it took awhile to take affect post getting medication". Pt states this 2 hours post admin of PO [place]. Addendum: 11/13/16 at 0228 by RENNY FLOREZ RN Pt states "I have more range of motion in my left arm now that the pain has decreased".
[2016-11-13 00:22] VITALS: BP 144/74; PULSE 63; RESP 16; O2SAT 96
[2016-11-13] MEDS: Heparin 5,000 Unit/mL Inj SUBQ SCH ×3 (00:50→15:44)
--- NOTE | 2016-11-13 01:10 | NUR ---
Blood Culture Lab reported positive blood culture from anaerobic source of gram positive cocci resembling staff. Night hospitalist notified. Pt was given previously IV Vanco one time does and IV Rocephin one time dose. No new orders at this time. Addendum: 11/13/16 at 0229 by RENNY FLOREZ RN 2nd set anaerobic blood culture came back positive for gram positive cocci resembling staff. No new orders at this time.
[2016-11-13] MEDS: HYDROcodone-APAP 5-325 mg Tablet PO PRN ×2 (03:59→08:08)
[2016-11-13 05:59] VITALS: BP 118/68; PULSE 68; RESP 18; O2SAT 96
[2016-11-13] MEDS: predniSONE 20 mg Tablet PO SCH ×2 (08:08→20:39)
[2016-11-13] MEDS: 0.9% Sodium Chloride 1,000 ML IV SCH (08:09)
[2016-11-13] MEDS: Insulin LISPRO 300 Unit/3 mL Inj SUBQ SCH ×4 (08:11→22:00)
[2016-11-13 08:15] VITALS: BP 183/62; PULSE 60; RESP 16; O2SAT 98
[2016-11-13 09:26] VITALS: BP 168/69; PULSE 63
[2016-11-13] MEDS: Ceftaroline Inj 400 MG in Dextrose 5% 250 ML IV SCH ×2 (11:36→23:22)
--- NOTE | 2016-11-13 13:09 | PROG NOTE ---
[address] [address] PROGRESS NOTE PATIENT: JENNYFER GLOVER : 1945 MR#: [id number] ADMIT: 11/12/2016 JOB ID: [id number] DATE: 11/13/2016 SUBJECTIVE: The patient was seen and examined. Doing well. States that his elbow was feeling a bit better today and he is moving it more. He does not have any fevers or chills. OBJECTIVE: Blood pressure is 168/69, pulse rate 63, respirations 16, temperature 36.9. He is afebrile with a T-max of 37.1. He is alert and cooperative, in no acute distress, resting comfortably in bed. His left elbow has range of motion of 10-120 degrees with good pronation and supination. He has no significant pain with range of motion of the elbow. I did not appreciate any significant elbow effusion today. He does still have some warmth in the elbow although it feels to be improved from yesterday. He is moving his fingers well, without limitation. Sensation to the hand is intact. LABORATORY EVALUATION: Microbiology: Left elbow synovial fluid positive for monosodium urate crystals. No growth on culture. No organisms on Gram stain. His blood cultures are positive for gram-positive cocci. ASSESSMENT: Left elbow gouty arthritis with possible bacteremia of uncertain source. PLAN: Will continue to watch his elbow and if it becomes worse we could do an elbow washout tomorrow; however, his elbow seems to be improving and I am at a loss to explain his positive blood cultures, as his elbow certainly appears to be acute pain due to gouty arthritis. Will keep the patient n.p.o. after midnight in case we need to wash his elbow out tomorrow.
[2016-11-13 13:15] VITALS: BP 151/49; PULSE 57; RESP 16; O2SAT 96
--- NOTE | 2016-11-13 16:45 | NUR ---
PAIN/ACTIVITY Patient was medicated with Hydrocodone/APAP 1 tab PO this morning. This has been adequate for pain control. Patient denies any further elbow pain. L elbow is red, warm and swollen. Per patient this looks better as compared to when he was admitted. Tolerating liquids PO and his diet well. Denies nausea. No emesis noted. SOB with exertion per patient, which is not new from his baseline. Voiding without any problems. Ambulated 1/2 loop in [address] hallway with SBA. Gait is unsteady. Per patient he is doing better with ambulation. At baseline he uses the cane and can only ambulate up to [address] Diez was made aware RE: + blood culture X 2. New orders for ABT received and administered. MRSA nasal swab is negative.
[2016-11-13 19:50] VITALS: BP 159/55; PULSE 63; RESP 20; O2SAT 97
[2016-11-13] MEDS: Insulin GLARgine 100 Unit/mL Syringe SUBQ SCH (20:57)
--- NOTE | 2016-11-13 21:09 | PCM.PNMED ---
Subjective Date of Service Nov 13, 2016 Subjective Patient is seen and examined. He is seen walking with therapy. Not having any fevers, has good range of motion in the left elbow. Erythema seems to have improved slightly, does not clinically appear to be bacteremic Exam Vital Signs Vital Sign - Last Date Time Temp Pulse Resp B/P Pulse Ox O2 Delivery O2 Flow Rate FiO2 11/13/16 13:15 36.4 57 16 151/49 96 Room Air Intake and Output 11/12/16 11/12/16 11/13/16 Cumulative From/Thru 15:00 23:00 07:00 11/11/16 16:50 - 11/13/16 05:59 Intake Total 636 ml 1519 ml 2451 ml Output Total 775 ml 1100 ml 1875 ml Balance -139 ml 419 ml 576 ml Intake Oral 636 ml 850 ml 1486 ml IV Total 669 ml 965 ml Output Urine Total 775 ml 1100 ml 1875 ml # Voids 3 5 8 # Bowel Movements 0 0 0 Exam General: Alert, Oriented X3, Cooperative, No acute Distress Eyes: PERRLA, Scleral Anicteric Mouth: Mouth Normal, Mucous Membranes Moist/[place] Neck: Supple, no Thyromegaly, trachea central. Chest & Lungs: Clear to auscultation & percussion, No adventitious breath sounds, no crackles, no wheeze Cardiovascular: Normal S1, Normal S2, No Murmurs/Rubs/Gallops, Regular Rate/ Rhythm (No JVD, no peripheral edema) Pulses: Radial (present and equal), Dorsalis Pedi (present and equal) Abdomen: Soft, Non-tender, Non-distended, Normoactive bowel tones. Musculoskeletal: Unremarkable. Normal range of motion, Extremities left elbow with diffuse swelling and erythema. Skin: No rashes. Warm and dry Neurological: No focal deficits IVs and Medications Medications Reviewed: Medications were reviewed in detail Lab and Diagnostics Result Diagram: 11/13/16 1542 11/13/16 1542 X-Rays, CTs and MRIs X-RAY LEFT ELBOW COMPLETE 11/11 IMPRESSION: Left elbow joint effusion is of uncertain etiology in the absence of any recent trauma. Dictated by: David Warner M.D. on 11/11/2016 at 19:35 Approved by: David Warner M.D. on 11/11/2016 at 19:37 US VENOUS ARM DUPLEX UNILATERAL, LEFT 11/11 IMPRESSION: 1. No sonographic evidence for left upper extremity deep venous thrombosis. 2. 2.9 x 2.7 x 1.4 cm posterior left elbow region fluid collection may represent olecranon bursitis versus posterior portion of sizable elbow joint effusion. Dictated by: David Warner M.D. on 11/11/2016 at 20:42 Approved by: David Warner M.D. on 11/11/2016 at 20:45 Assessment & Plan Taj Garcia is a 71 yo man with Coronary artery disease, Gout, Diabetes and Hypertension who presents to [facility] emergency department with complaints of left elbow pain Bacteremia secondary to gram-positive cocci, questionable if elbow is the source -- We will do for compartment short gram-positive cocci from admission time, though the elbow aspirate showed no similar growth so far -- He received ceftriaxone until yesterday -- Patient is placed on teflaro cover for MRSA and strep -- ID is consulted, and see the patient tomorrow -- Follow culture sensitivities -- He denies drug abuse, says he only used heroin until one yr ago.. Left elbow swelling and pain. Secondary to gouty arthritis, present on admission Likely septic arthritis vs Gout ESR and CRP elevated -- Aspirate culture showed gout crystals -- Switched him to morphine for pain -- colcrys and prednisone for acute gout flare up -- Patient in nothing by mouth for any possible surgery tomorrow to wash the elbow though Dr. Krause does not feel convinced that his bacteremia is coming from the elbow Elevated troponin. Present on admission Possible demand ischemia or from renal failure - troponin overnight, stable - complete echo: ordered for am Hypertension chronic active -- Some of patient's home medications were held due to low blood pressure on -- Started amlodipine 11/13 Acute Kidney injury. Present on admission improving - Likely pre renal with hypovolemia - continue IV fluids - avoid nephrotoxic insults Coronary artery disease chronic active No anginal symptoms - continue Aspirin Gout chronic active - checking Uric acid - Acetaminophen as needed for mild pain/fever/headache - Bowel regimen as needed - Antiemetic as needed Patient admitted under inpatient status with expected length of stay > 2 midnights for severity of present symptoms, complexities of treatment plan and risk for adverse event . Pain Evaluation: Adequate Pain Control Resuscitation Status: CPR: Attempt Resuscitation Time spent 25 min Lilly Diez DO Nov 13, 2016 21:09 Lilly Diez DO Nov 13, 2016 21:09
[2016-11-13] MEDS ORDERED: LISI10TA PO (22:03)
[2016-11-13] MEDS ORDERED: POTA-62 PO (22:12)
[2016-11-13] MEDS ORDERED: INSU100I (22:12)
[2016-11-14] MEDS: Heparin 5,000 Unit/mL Inj SUBQ SCH ×3 (00:45→16:26)
--- NOTE | 2016-11-14 03:26 | NUR ---
Pain/activity pt has had no complaints of pain in his elbow this shift. pt L elbow is red and slightly swollen however pt states he has full range of motion in it now and it feels "back to normal". pt has ambulated in his room but needs to be SBA he is very unsteady on his feet. he uses a cane at baseline but has been forgetting to use when he gets up. nurse has seen him swaying on his feet and grabbing a hold of the bed and rivera to keep himself up. he also has been forgetful about his IV pole and line and has almost pulled it out a couple of times. nurse has asked pt to call for assistance before getting out of bed. pt is agreeable to this but needs reminders, jay alarm has been put on bed. also pt provided nurse with his most recent med list. med rec has been updated. bed in low position, call light within reach.
[2016-11-14] MEDS: 0.9% Sodium Chloride 1,000 ML IV SCH ×3 (04:25→23:08)
[2016-11-14 05:45] VITALS: BP 150/82; PULSE 52; RESP 20; O2SAT 96
[2016-11-14] MEDS: predniSONE 20 mg Tablet PO SCH ×2 (07:57→20:03)
[2016-11-14 08:00] VITALS: BP 147/63; PULSE 53; RESP 20; O2SAT 94
[2016-11-14] MEDS: Insulin LISPRO 300 Unit/3 mL Inj SUBQ SCH ×4 (08:03→22:00)
--- NOTE | 2016-11-14 08:11 | PROG NOTE ---
[address] [address] PROGRESS NOTE PATIENT: JENNYFER GLOVER : 1945 MR#: [id number] ADMIT: 11/12/2016 JOB ID: [id number] DATE: 11/14/2016 SUBJECTIVE: Patient is seen and examined. States that his elbow is feeling a bit better today. OBJECTIVE: Blood pressure 150/82, pulse rate 52, respirations 20, T max 37.1. He is alert and cooperative in no acute distress. Left elbow has range of motion of 10-140 degrees. He has some warmth in the elbow, but this has improved over the last couple of days. I do not appreciate any significant elbow effusion. He is moving his fingers well and has no pain with passive range of motion of the elbow. ASSESSMENT: Left elbow gouty arthritis with positive blood cultures. PLAN: The patient's elbow aspirate has not shown any bacterial growth, and I am at a loss to explain his positive blood cultures as I do not feel that the elbow represents a septic arthritis. If his elbow symptoms worsen, I would be happy to wash out his elbow, but at this point we discussed that we could do the elbow washout, but he would prefer to not have this done as he does not feel that the elbow is that bad and feels that it is improving at this point.
[2016-11-14] MEDS ORDERED: CITA10TA9 PO (10:19)
[2016-11-14] MEDS: Ceftaroline Inj 400 MG in Dextrose 5% 250 ML IV SCH ×2 (11:07→23:08)
[2016-11-14 12:44] VITALS: BP 144/65; PULSE 53; RESP 16; O2SAT 95
--- NOTE | 2016-11-14 15:45 | PCM.PNMED ---
Subjective Date of Service Nov 14, 2016 Subjective Patient is seen and examined. He is in good spirits, says that he does not really know much about his cardiac problems. He sees Dr. Marcial. He does not know if he has had endocarditis in the past. His elbow continues to improve , no other concerns Exam Vital Signs Vital Sign - Last Date Time Temp Pulse Resp B/P Pulse Ox O2 Delivery O2 Flow Rate FiO2 11/14/16 12:44 36.9 53 16 144/65 95 Room Air Intake and Output 11/13/16 11/13/16 11/14/16 Cumulative From/Thru 15:00 23:00 07:00 11/11/16 16:50 - 11/14/16 05:45 Intake Total 1894 ml 1749 ml 6094 ml Output Total 1250 ml 2250 ml 5375 ml Balance 644 ml -501 ml 719 ml Intake Oral 1100 ml 800 ml 3386 ml IV Total 794 ml 949 ml 2708 ml Output Urine Total 1250 ml 2250 ml 5375 ml # Voids 8 # Bowel Movements 0 0 0 Exam General: Alert, Oriented X3, Cooperative, No acute Distress Eyes: PERRLA, Scleral Anicteric Mouth: Mouth Normal, Mucous Membranes Moist/Normanna Neck: Supple, no Thyromegaly, trachea central. Chest & Lungs: Clear to auscultation & percussion, No adventitious breath sounds, no crackles, no wheeze Cardiovascular: Normal S1, Normal S2, No Murmurs/Rubs/Gallops, Regular Rate/ Rhythm (No JVD, no peripheral edema) Pulses: Dorsalis Pedi (present and equal) Abdomen: Soft, Non-tender, Non-distended, Normoactive bowel tones. Musculoskeletal: Unremarkable. Normal range of motion, Extremities left elbow much improved swelling and erythema Skin: Several tattoos. Warm and dry Neurological: No focal deficits IVs and Medications IV Fluids NSS 60 mL per hour Medications Reviewed: Medications were reviewed in detail Lab and Diagnostics Result Diagram: 11/14/1643911/14/16439 X-Rays, CTs and MRIs X-RAY LEFT ELBOW COMPLETE 11/11 IMPRESSION: Left elbow joint effusion is of uncertain etiology in the absence of any recent trauma. Dictated by: David Warner M.D. on 11/11/2016 at 19:35 Approved by: David Warner M.D. on 11/11/2016 at 19:37 US VENOUS ARM DUPLEX UNILATERAL, LEFT 11/11 IMPRESSION: 1. No sonographic evidence for left upper extremity deep venous thrombosis. 2. 2.9 x 2.7 x 1.4 cm posterior left elbow region fluid collection may represent olecranon bursitis versus posterior portion of sizable elbow joint effusion. Dictated by: David Warner M.D. on 11/11/2016 at 20:42 Approved by: David Warner M.D. on 11/11/2016 at 20:45 Assessment & Plan Taj Garcia is a 71 yo man with Coronary artery disease, Gout, Diabetes and Hypertension who presents to [facility] emergency department with complaints of left elbow pain Bacteremia secondary to gram-positive cocci, questionable if elbow is the source -- We will do for compartment short gram-positive cocci from admission time, though the elbow aspirate showed no similar growth so far -- He received ceftriaxone until 11/12, a switch to teflaro cover for MRSA and strep -- ID is consulted, they will be seeing the patient on 11/14. We appreciated their recommendations -- Follow culture sensitivities -- He denies drug abuse, says he only used heroin until one yr ago. Angry that he was labeled as "drug addict" and he no longer does any drugs -- Echocardiogram is ordered: "No obvious valvular vegetation seen. However, if clinical suspicion for endocaditis is high, consider JUAN MANUEL." -- Reviewed patient's cardiology reports on next gen -- Follow-up blood cultures from 11/13 continued to be negative to date -- IV fluids decreased to 30 mL/h, Stop fluids in the a.m. as patient is clinically showing improvement Left elbow swelling and pain. Secondary to gouty arthritis, present on admission Likely Gout ESR and CRP elevated -- Aspirate culture showed gout crystals -- Switched him to morphine for pain -- colcrys and prednisone for acute gout flare up. Stop prednisone after 5 days of twice a day dosing -- Dr. Krause does not feel convinced that his bacteremia is coming from the elbow Elevated troponin. Present on admission Possible demand ischemia or from renal failure - troponin overnight, stable - complete echo 11/14: ordered for am "No obvious valvular vegetation seen. However, if clinical suspicion for endocaditis is high, consider JUAN MANUEL." Hypertension chronic active -- Some of patient's home medications were held due to low blood pressure on -- Started amlodipine 11/13 -- Continue to monitor Acute Kidney injury (baseline 55/1.44 Baseline BUN/Cr GFR 50 stage CKD). Present on admission improving - Patient is back to his baseline BUN/creatinine 39/1.40 on 11/14 -- Reviewed patient's next dentists clinic records for understanding baseline Coronary artery disease chronic active --No anginal symptoms - continue Aspirin Gout chronic active - checking Uric acid - Acetaminophen as needed for mild pain/fever/headache - Bowel regimen as needed - Antiemetic as needed Patient admitted under inpatient status with expected length of stay > 2 midnights for severity of present symptoms, complexities of treatment plan and risk for adverse event . Pain Evaluation: Adequate Pain Control Resuscitation Status: CPR: Attempt Resuscitation Time spent 25 minutes Lilly Diez DO Nov 14, 2016 15:45
--- NOTE | 2016-11-14 17:21 | NUR ---
Social Work: Initial Assessment/Multi-Disciplinary Rounds D: EMR reviewed. Please see Initial Assessment linked to this note for more information. Pt is a 71 y/o male admitted for septic arthritis left elbow per H&P. Pt has a readmit risk score of 4. SW met with pt at bedside to conduct initial assessment. Pt was alert and oriented x3. SW explained role and wrote phone number on white board. SW provided "Your Discharge Planning Checklist" and encouraged pt to contact SW for any discharge planning questions. Pt's insurance is Medicare and [employer] Supplemental. PCP is Ulysses Rolle MD. Pt gave verbal consent to contact spouse Marsha Garcia [phone] for discharge planning. DPOA/advanced directive ppw discussed - ppw provided and SW encouraged pt to provide the hospital with a copy once complete. Pt owns a walker and a cane. Pt only uses cane for ambulation. Pt is independent with all ADLs. Pt stated he wishes the hospital would remove his use of marijuana as substance abuse from his chart. Pt states it is legal. SW asked if pt uses any other substances - pt declined to answer. Pt discussed in multidisciplinary rounds. Per multidisciplinary rounds, pt is not medically stable for discharge, anticipate 2-3 more days pending ID. No SW needs identified, no MD orders received. A: SW assessed pt's capacity for self-care. SW does not have any concerns for pt's capacity for self-care. Pt is independent with ADLs at baseline. Pt does not have any concerns regarding discharge at this time. Pt lives at home with his spouse [facility]. Pt feels safe discharging home and will remain independent. P: Pt likely to discharge home with spouse to transport via POV. No SW needs identified. No MD orders received. SW will continue to follow for needs. DANILO Davies Addendum: 11/14/16 at 1725 by ALEXANDR CASTRO Amended: Links added.
--- NOTE | 2016-11-14 17:39 | DRSVH ---
[facility] [address] [place] [address] Echocardiogram Report Name: JENNYFER GLOVER JStudy Date: 11/14/2016 Height: 70 in Hospital Exam Location: [facility] Weight: 181 lb Gender: Male BSA: 2.0 m2 : 1945 Age: 71 yrs BP: 150/82 mmHg Reason For Study: Endocarditis Ordering Physician: Performed By: Sapna Vazquez Interpretation Summary The left ventricle is mildly dilated. The ejection fraction is estimated to be 60-65%. Mild hypokinesis in the proximal and mid inferior rivera that is unchanged compared to the previous study. The right ventricle is normal size. The right ventricular systolic function is normal. The aortic valve is bicuspid. The aortic valve is moderately calcified. The calculated aortic valve area is 1.6 cm2. The peak aortic velocity is 3.1 m/sec. The peak aortic velocity on the previous exam was 2.9 m/sec. The aortic valve mean gradient is 24 mmHg. There is no hemodynamically significant valvular aortic stenosis. There is mild to moderate aortic regurgitation. There has been no significant change since the previous study. There is mild tricuspid regurgitation. Compared to the prior echo exam, there has been no change in TR severity. The right ventricular systolic pressure is estimated at 36 mmHg assuming a right atrial pressure of 3 mm Hg. The ascending aorta is moderately enlarged (4.2 cm in diameter. No significant change from the previous study). No obvious valvular vegetation seen. However, if clinical suspicion for endocaditis is high, consider JUAN MANUEL. Procedure: A two-dimensional transthoracic echocardiogram with color flow and Doppler was performed in limited views only. The study quality was technically good. Comparison is made with the echocardiogram of 08-27-16. The patient was in normal sinus rhythm during the exam. Left Ventricle: There is mild concentric left ventricular hypertrophy. There is moderate proximal septal thickening noted. The left ventricle is mildly dilated. There is no thrombus. The ejection fraction is estimated to be 60-65%. mild hypokinesis in the proximal and mid inferior rivera that is unchanged compared to the previous study. There is a mild dyssynchronous contraction pattern, consistent with a conduction abnormality. E/A ratio is normal. Right Ventricle: The right ventricle is normal size. The right ventricle appears to be hypertrophied. The right ventricular systolic function is normal. Atria: The left atrium is severely dilated. The left atrium has significantly increased in size since the prior echo exam. Right atrial size is normal. The interatrial septum is intact with no evidence for an atrial septal defect. Mitral Valve: The mitral valve leaflets appear mildly thickened, but open well. The mitral valve leaflets are mildly calcified. There is systolic anterior motion of the chordal apparatus. There is trace mitral regurgitation. There has been no significant change since the previous study. Aortic Valve: The aortic valve is moderately calcified. The aortic valve is bicuspid. The calculated aortic valve area is 1.6 cm2. The aortic valve area is 3.1 centimeters squared by planimetry. The peak aortic velocity is 3.1 m/sec. The peak aortic velocity on the previous exam was 2.9 m/sec. The aortic valve mean gradient is 24 mmHg. Severityn ratio is 0.28. There is no hemodynamically significant valvular aortic stenosis. There is mild to moderate aortic regurgitation. There has been no significant change since the previous study. Tricuspid Valve: The tricuspid valve is normal. There is mild tricuspid regurgitation. The right ventricular systolic pressure is estimated at 36 mmHg assuming a right atrial pressure of 3 mm Hg. Compared to the prior echo exam, there has been no change in TR severity. Compared to the prior echo exam, there has been no change in the severity of pulmonary hypertension. Pulmonic Valve: The pulmonic valve leaflets are thin and pliable; valve motion is normal. There is trace pulmonic regurgitation. Great Vessels: The aortic root is normal size. There is aortic root sclerosis/calcification. The ascending aorta is moderately enlarged. This is unchanged compared to the previous study. The IVC is of normal diameter and collapses greater than 50% with a sniff. This suggests a low right atrial pressure of 3 mm Hg. Pericardium/ Pleura There is no pericardial effusion. There is no pleural effusion. MMode/2D Measurements & Calculations LVIDd RA long axis: 5.2 cm LVOT diam: 2.7 cm : 6.0 cm LA A2 area: 26.9 cm Ao root diam LVIDs LA A4 area: 30.8 cm RA area: 17.9 cm : 4.0 cm LA length (vol): 6.8 cmRA vol: 51.8 ml asc Aorta Diam FS: 33.0 % LA vol: 104.0 ml RA : 25.9 ml/m2 IVSd: 1.1 cmLA vol index Ao Arch Diam (Prox LVPWd Trans): 3.1 cm : 1.1 cm : 52.0 ml/m2 DIMITRIS (plan) LV magana. diameter/BSA LV sys. diameter/BSA (cm/m^2): 3.0 (cm/m^2): 2.0 : 3.1 cm2 Doppler Measurements & Calculations Ao V2 max MV E max agustin MV E/A: 1.4 TR max agustin : 310.4 cm/sec : 72.9 cm/sec MV A dur : 287.8 cm/sec Ao max PG MV A max agustin : 0.11 sec TR max PG : 38.5 mmHg : 52.9 cm/sec : 33.1 mmHg Ao mean PG MV P1/2t: 63.5 msec PA V2 max : 23.8 mmHg : 99.1 cm/sec LVOT Max Agustin PA mean PG : 90.1 cm/sec DIMITRIS(I,D): 1.6 cm PA Accel Time sev ratio : 0.10 sec MV dec time MV P1/2t max agustin Ao V2 mean LV V1 max PG : 0.21 sec : 234.0 cm/sec MVA(P1/2t): 3.5 cm2 Ao V2 VTI LV V1 VTI : 22.7 cm DIMITRIS(V,D): 1.6 cm2 PA V2 mean DIMITRIS indexed to BSA : 61.6 cm/sec (cm^2/m^2): 0.79 Reading Physician:MIRANDA
--- NOTE | 2016-11-14 17:48 | NUR ---
Shift Assessment Pt. had echo today, blood cultures from yesterday showing no growth today. MD spoke at length with patient re: plan of care and ruling out infective source and treating presenting infection. Remains unsteady on his feet, but did walk with RN assistance in the hallway. Awaiting I&D consult.
[2016-11-14 20:11] VITALS: BP 185/73; PULSE 63; RESP 20; O2SAT 96
--- NOTE | 2016-11-14 21:09 | CONS ---
[address] [address] CONSULTATION REPORT PATIENT: JENNYFER GLOVER : 1945 MR#: [id number] ADMIT: 11/12/2016 JOB ID: [id number] DATE OF SERVICE: 11/14/[address] Lilly Diez for this timely consult. REASON FOR CONSULTATION: Staphylococcal bacteremia in a patient with gout involving his left elbow. HISTORY OF THE PRESENT ILLNESS: The patient is a 71-year-old gentleman with a complicated past medical history including organic heart disease, diabetes, gout, and mild renal insufficiency. He was in his usual state of health until a couple weeks ago when he noticed the insidious onset of swelling, tenderness and pain in his left elbow. This eventually became so severe that he really could not use the oval at all and for that reason sought evaluation here in the ED on November 12. At that time, he underwent an aspiration which yielded gout crystals which was not surprising given the history of prior gout in his feet. However, blood cultures subsequently grew Staph species in two bottles from two different sets and so I was consulted regarding the nature of the staph bacteremia and whether it might be related to his gout. It is interesting in speaking to the patient and his that he did not have any history of preceding fevers, chills or sweats but rather just fiery red tenderness which was progressive in his left elbow which is now dramatically improved after just a couple days in the hospital following the aspiration that was done in the emergency department. This evening, the patient and his state that he has basically returned to his normal state of health. He never had any fevers, chills or sweats and he is constantly short of breath as result of chronic cardiac disease, but that has not worsened or changed recently. He notes that his left elbow has returned almost to complete normal functionality with complete normal range of motion, minimal continued swelling and no warmth or tenderness. There have been no signs of gout anywhere else nor has he had issues with infection elsewhere such as cellulitis, other swollen joints, purulent sputum, or urinary tract symptoms. PAST MEDICAL HISTORY: 1. Organic heart disease. a. Coronary artery disease. b. Chronic CHF. c. Aortic insufficiency. d. Pulmonary hypertension. e. Patent foramen ovale. f. Pulmonary hypertension. 2. Gout. 3. Hypertension. 4. Diabetes mellitus. 5. Chronic renal insufficiency. 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 He smoked cigarettes heavily until the mid 80s and then quit. He was also a heavy consumer of alcohol until the 80s and quit. 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 Marcial of cardiology advised him to quit and he did and has never used it again. At no point has he ever injected drugs. He and his live in [place]. He served two tours in [employer] with the [employer] on land. FAMILY HISTORY: Negative for TB in first-degree relatives. REVIEW OF SYSTEMS: Was done. The patient has no significant headache, visual complaint or sore throat tonight. No stiff neck. He notes he has chronic dry cough and profound shortness of breath with any significant exertion. He notes that he can only walk 50 feet at baseline at this point. He is not having chest pain or purulent sputum tonight. No nausea, vomiting, diarrhea. No dysuria, urgency, or frequency. No swelling of the joints except the left elbow as mentioned above and no neurologic complaints. Remainder of the review of systems is negative. PHYSICAL EXAMINATION: Reveals a gentleman in no acute distress, lying supine in his hospital bed. He is awake, alert and able to give a good history. Temperature is 37.1. He has not been febrile during this admission. His pulse is in the 50s. Respiratory rate 16, blood pressure 144/65, saturating 95% on room air. He has a large perez which makes his exam a bit difficult. Head without any evidence of trauma. No temporal wasting. Eyes without conjunctivitis or scleral icterus. Nose normal. Oral cavity: No thrush, hairy leukoplakia or pharyngitis. Neck is reasonably supple without obvious adenopathy. His lungs are quite clear. Cardiac tones: Regular rate and rhythm without significant murmur. The abdomen is soft and nontender, without organomegaly. He does not have a Aquino catheter. No suprapubic fullness is noted. The right upper extremity is benign. The left upper extremity is notable for complete normal range of motion around the left elbow. There is some very minimal warmth around the olecranon area but it is quite minimal and there is a bit of boggy edema present there but also very minimal even as compared to the normal right elbow. The hands are normal bilaterally. Lower extremities without evidence of synovitis or cellulitis. He has excellent bilateral posterior tibial pulses. No evidence of any skin breakdown. Neurologically, the patient is intact with good strength in all extremities. His mental status is completely normal. LABORATORIES: Include white blood count 10,300 on admission, now 8200. Sed rate is 67. Creatinine 1.4, down from 1.94 earlier. C-reactive protein 4.6, down from 20 on admission. His urinalysis without white cells or red cells. Synovial fluid from the elbow 123,000 white blood cells, essentially all polys. Culture of that fluid so far negative but gout crystals were seen. MICRO: One blood culture in each of the initial two sets has grown a Staph organism. So far, this appears to be coag-negative staph, but we await the final ID of these two positive bottles. Followup blood cultures were done November 13 and these are negative. MRSA screen of the nares negative. X-ray of the elbow shows a left elbow effusion. No evidence of trauma or fracture is seen. IMPRESSION: This is a bit of an odd case in that the patient has an underlying history of gout and came in with a hot swollen tender elbow. He did not have fevers or chills and did not look especially systemic ill. As expected his fluid showed a great deal of white blood cell activity and inflammation and gout crystals were found confirming the diagnosis of gout involving the left elbow. The confusing part is that two sets of blood cultures each yielded one positive and both of these appear to be coag-negative staph. At this point, we are waiting on the ID of these organisms and I would certainly continue antibiotics until this is clarified. There is a possibility that these could represent Staph lugdunensis which is the worst of the coagulase negative Staph and it will be important to see whether these are the same organism or two different Staph organisms. If these nocturnist physician to be two different coag-negative Staph from the two blood cultures, I think we will conclude that they are contaminants and stop all antibiotics. If, on the other hand, these are the same organism, will be forced to stop and consider whether this could be gout with a bacterial superinfection. Note that gouty arthritis in 5% to 10% of cases is complicated by bacterial superinfection and the combination of bacteria plus gout can be extremely destructive to the joint itself. RECOMMENDATIONS: 1. Continue with ceftaroline for the time being in this patient with moderate chronic renal insufficiency. 2. We await the final ID of the organisms tomorrow. 3. We should check a Strongyloides antibody in this patient who is currently receiving steroids, and who served in two tours in [place] on the ground. A small percentage of a [place] veterans have acquired Strongyloides during their service and this could be devastating if they are treated with steroids or other immunosuppressants. Thank you very much for this consult. I will see this patient again tomorrow.
[2016-11-14] MEDS: Insulin GLARgine 100 Unit/mL Syringe SUBQ SCH (23:05)
[2016-11-15] MEDS: Heparin 5,000 Unit/mL Inj SUBQ SCH ×2 (00:47→10:15)
--- NOTE | 2016-11-15 03:10 | NUR ---
activity Dr. Johnson saw pt last night. after talking to Dr. johnson pt said he understood now why he still needed to be in the hospital. he has had an uneventful night. he has no complaints of pain or discomfort. he states his L elbow is back to baseline. he has used urinal at bedside as pt is unsteady on his feet when ambulating alone. he has used the call light appropriately. bed in low position, call light within reach. care continues.
[2016-11-15 06:03] VITALS: BP 132/54; PULSE 60; RESP 18; O2SAT 97
[2016-11-15] MEDS: Insulin LISPRO 300 Unit/3 mL Inj SUBQ SCH ×2 (07:31→11:55)
[2016-11-15 07:46] LABS: BASOPHILS % (AUTO) 0.1 % (0-3); EOSINOPHILS % (AUTO) 0.1 % (0-5); Mean Corpuscular Hemoglobin 31.1 pg (27.0-35.0); Mean Corpuscular Volume 92.1 fL (81-100); NEUTROPHILS % (AUTO) 83.6 % (40-74); Platelet Count 266 bil/L (150-400)
[2016-11-15 08:05] VITALS: BP 139/69; PULSE 51; RESP 18; O2SAT 96
[2016-11-15] MEDS: predniSONE 20 mg Tablet PO SCH (08:41)
--- NOTE | 2016-11-15 10:18 | PROG NOTE ---
[address] [address] PROGRESS NOTE PATIENT: JENNYFER GLOVER : 1945 MR#: [id number] ADMIT: 11/12/2016 JOB ID: [id number] DATE: 11/15/2016 REASON FOR FOLLOW UP: Gout, left elbow, with positive blood cultures. INTERVAL HISTORY: Overnight, the patient has felt well. He has had no fevers, chills, or sweats. No cough, nausea, vomiting, diarrhea. His left elbow is continuing to improve, though it is still just a little bit swollen and tender, but not much and steadily better. PHYSICAL EXAMINATION: Reveals an afebrile, comfortable gentleman. He has had no fever since admission. Temp 36.4, pulse 51, respiratory rate 18, blood pressure 139/69. He is saturating well on room air. No skin rash noted. The left elbow has full range of motion without warmth or tenderness. Peripheral IV in the right arm appears benign. LABORATORIES: Include white count of 6900, still 84% segs, but he has received some steroids. His creatinine 1.62. CRP is down to 2.1. Strongyloides antibody is pending. Recall that he had a profound pleocytosis in the fluid aspirated from the elbow 123,000 white cells. Micro results include negative cultures from the elbow fluid which was aspirated three days ago. In addition, gout crystals were clearly seen in that fluid. The blood cultures from admission, each set had one bottle positive for coag-negative staph, but one bottle with Staph warneri, and then the other bottle from the other set was Staph epidermidis, and the micro YelloYello, with whom I discussed this case, reports that these are distinctly different microorganisms on the plates. IMPRESSION: This patient has gout involving his left elbow which accounts for his pleocytosis within the joint. There is no evidence for ongoing bacterial infection, and the blood cultures are contaminants. RECOMMENDATIONS: 1. Will go ahead and stop the ceftaroline the patient has been receiving. 2. The patient can be discharged at anytime from an Infectious Disease point of view. 3. ID will go ahead and sign off at this point. Please do not hesitate to call me if there is additional questions or issues with this patient.
[2016-11-15 11:43] VITALS: BP 128/64; PULSE 57; RESP 18; O2SAT 97
--- NOTE | 2016-11-15 12:36 | NUR ---
Social Work- Readiness for Discharge/Multidisciplinary Rounds Data: EMR reviewed. Pt is on day 3 of hospitalization. Pt discussed in multidisciplinary rounds. Pt is likely to d/c today, no orders have been placed at this time. ID is consulted on pt. Pt to discharge home via POV when medically stable. SW met with pt at bedside regarding discharge plan, Pt is anxious to return home and is excited. No discharge needs identified at this time. SW will continue to follow. Assessment: Pt who is independent at baseline. Plan: No discharge needs identified at this time. Pt to discharge home via POV when medically stable. SW will continue to follow. DANILO Baker
--- NOTE | 2016-11-15 13:05 | PCM.PNMED ---
Subjective Date of Service Nov 15, 2016 Subjective Pt reports imp pain of left elbow. Exam Vital Signs Vital Sign - Last Date Time Temp Pulse Resp B/P Pulse Ox O2 Delivery O2 Flow Rate FiO2 11/15/16 11:43 36.9 57 18 128/64 97 Room Air Intake and Output 11/14/16 11/14/16 11/15/16 Cumulative From/Thru 15:00 23:00 07:00 11/11/16 16:50 - 11/15/16 06:03 Intake Total 1781 ml 1234 ml 9109 ml Output Total 1150 ml 1000 ml 7525 ml Balance 631 ml 234 ml 1584 ml Intake Oral 800 ml 550 ml 4736 ml IV Total 981 ml 684 ml 4373 ml Output Urine Total 1150 ml 1000 ml 7525 ml # Voids 8 # Bowel Movements 0 0 0 Exam General: Alert, Oriented X3, Cooperative, No acute Distress Eyes: PERRLA, Scleral Anicteric Mouth: Mouth Normal, Mucous Membranes Moist/[place] Neck: Supple, no Thyromegaly, trachea central. Chest & Lungs: Clear to auscultation & percussion, No adventitious breath sounds, no crackles, no wheeze Cardiovascular: Normal S1, Normal S2, No Murmurs/Rubs/Gallops, Regular Rate/ Rhythm (No JVD, no peripheral edema) Pulses: Dorsalis Pedi (present and equal) Abdomen: Soft, Non-tender, Non-distended, Normoactive bowel tones. Musculoskeletal: Unremarkable. Normal range of motion, Extremities left elbow much improved swelling and erythema Skin: Several tattoos. Warm and dry Neurological: No focal deficits IVs and Medications Medications Reviewed: Medications were reviewed in detail Lab and Diagnostics Result Diagram: 11/15/16 0444 11/15/164 X-Rays, CTs and MRIs X-RAY LEFT ELBOW COMPLETE 11/11 IMPRESSION: Left elbow joint effusion is of uncertain etiology in the absence of any recent trauma. Dictated by: David Warner M.D. on 11/11/2016 at 19:35 Approved by: David Warner M.D. on 11/11/2016 at 19:37 US VENOUS ARM DUPLEX UNILATERAL, LEFT 11/11 IMPRESSION: 1. No sonographic evidence for left upper extremity deep venous thrombosis. 2. 2.9 x 2.7 x 1.4 cm posterior left elbow region fluid collection may represent olecranon bursitis versus posterior portion of sizable elbow joint effusion. Dictated by: David Warner M.D. on 11/11/2016 at 20:42 Approved by: David Warner M.D. on 11/11/2016 at 20:45 Assessment & Plan Taj Garcia is a 71 yo man with Coronary artery disease, Gout, Diabetes and Hypertension who presents to [facility] emergency department with complaints of left elbow pain Gout- Left Elbow, acute, POA. Resolving. Left elbow swelling and pain. ESR and CRP elevated -- Aspirate culture showed gout crystals -- Switched him to morphine for pain -- Dr. Bedoya saw pt. Does not feel septic arthritis. - prednisone for acute gout flare up. Stop prednisone after 5 days of twice a day dosing until November 16. Bacteremia - Coag Neg staph. elbow aspirate showed no similar growth -- He received ceftriaxone until 11/12, a switch to teflaro cover for MRSA and strep -- Echocardiogram is ordered: "No obvious valvular vegetation seen. However, if clinical suspicion for endocaditis is high, consider JUAN MANUEL." --ID Consulted, rec d/c Abx. Elevated troponin. Present on admission Possible demand ischemia or from renal failure - troponin overnight, stable - complete echo 11/14: ordered for am "No obvious valvular vegetation seen. However, if clinical suspicion for endocaditis is high, consider JUAN MANUEL." Hypertension chronic active -- Some of patient's home medications were held due to low blood pressure on -- Started amlodipine 11/13 -- Continue to monitor Acute Kidney injury (baseline 55/1.44 Baseline BUN/Cr GFR 50 stage CKD). Present on admission improving - Patient is back to his baseline BUN/creatinine 39/1.40 on 11/14 -- Reviewed patient's next dentists clinic records for understanding baseline Coronary artery disease chronic active --No anginal symptoms - continue Aspirin Gout chronic active - checking Uric acid - Acetaminophen as needed for mild pain/fever/headache - Bowel regimen as needed - Antiemetic as needed Dispo- Okay for discharge today. - prednisone for acute gout flare up. Stop prednisone after 5 days of twice a day dosing until November 16. . Resuscitation Status: CPR: Attempt Resuscitation Otilio Lazaro MD Nov 15, 2016 13:05 midnights for severity of present symptoms, complexities of treatment plan and risk for adverse event . Resuscitation Status: CPR: Attempt Resuscitation Otilio Lazaro MD Nov 15, 2016 13:05
--- NOTE | 2016-11-15 13:44 | PCM.DIMED ---
Discharge Instructions Date of Service Nov 15, 2016 Dates of Hospitalization Nov 12, 2016 at 02:00 Discharge Diagnosis Discharge Diagnosis Gout- Left Elbow, acute, POA. Resolving. Elevated troponin. Present on admission, stable. Hypertension chronic active Acute Kidney injury (baseline 55/1.44 Baseline BUN/Cr GFR 50 stage CKD). Present on admission, stable. Coronary artery disease, chronic Medication Instructions Additional med instructions - prednisone for acute gout flare up. Stop prednisone after 5 days of twice a day dosing until November 16. Diet Discharge Diet: Renal Diet Activity Discharge Activity: No restrictions Call your provider Call your provider for: Fever or Chills Patient Instructions Patient Instructions Follow up with your doctor and get referral to Nephrology. Will need repeat labs to evaluate renal function in 1 week. Follow-up Provider: ALBERTO HERRERA DO Follow-up with PCP in: 1 week Otilio Lazaro MD Nov 15, 2016 13:44
[2016-11-15] MEDS ORDERED: PRED-508 PO (13:46)
--- NOTE | 2016-11-15 14:03 | NUR ---
Social Work- Discharge Data: Pt to discharge today. Pt to discharge home via POV. No discharge needs identified. Assessment: Pt who is independent at baseline. Plan: Pt to discharge home via POV. No discharge needs identified. DANILO Baker
--- NOTE | 2016-11-15 14:09 | PCM.DC.MED ---
Discharge Summary Date of Service Nov 15, 2016 Dates of Hospitalization Date of Hospital Admission Nov 12, 2016 at 02:00 Date of Discharge: Nov 15, 2016 Providers: Admitting Physician: Jd Mcginnis MD Primary Care Physician: Ulysses Herrera DO Attending Physician: Joy Poole MD Diagnosis at Time of Discharge Diagnosis at Time of Discharge Gout- Left Elbow, acute, POA. Resolving. Elevated troponin. Present on admission, stable. Hypertension chronic active Acute Kidney injury (baseline 55/1.44 Baseline BUN/Cr GFR 50 stage CKD). Present on admission, stable. Coronary artery disease, chronic Procedures XRay, CTs & MRIs X-RAY LEFT ELBOW COMPLETE 11/11 IMPRESSION: Left elbow joint effusion is of uncertain etiology in the absence of any recent trauma. Dictated by: David Warner M.D. on 11/11/2016 at 19:35 Approved by: David Warner M.D. on 11/11/2016 at 19:37 US VENOUS ARM DUPLEX UNILATERAL, LEFT 11/11 IMPRESSION: 1. No sonographic evidence for left upper extremity deep venous thrombosis. 2. 2.9 x 2.7 x 1.4 cm posterior left elbow region fluid collection may represent olecranon bursitis versus posterior portion of sizable elbow joint effusion. Dictated by: David Warner M.D. on 11/11/2016 at 20:42 Approved by: David Warner M.D. on 11/11/2016 at 20:45 Brief History Per HPI on 11/12/[address] Velez, Taj Garcia is a 71 yo man with Coronary artery disease, Gout, Diabetes and Hypertension who presents to [facility] emergency department with complaints of left elbow pain Patient reported pain started on 11/06, located in the left elbow with associated pain on movement, denies any trauma. Patient was elevated in a clinic in [place] and was given antibiotics but the swelling and pain worsened. Denies any fever or chills. Case discussed with Dr Wyatt. elbow drained and antibiotics started. they left a message for Ortho consult in the morning Hospital Course Taj Garcia is a 71 yo man with Coronary artery disease, Gout, Diabetes and Hypertension who presents to [facility] emergency department with complaints of left elbow pain Gout- Left Elbow, acute, POA. Resolving. Left elbow swelling and pain. ESR and CRP elevated -- Aspirate culture showed gout crystals -- Switched him to morphine for pain -- Dr. Bedoya saw pt. Does not feel septic arthritis. - prednisone for acute gout flare up. Stop prednisone after 5 days of twice a day dosing until November 16. Bacteremia - Coag Neg staph. elbow aspirate showed no similar growth -- He received ceftriaxone until 11/12, a switch to teflaro cover for MRSA and strep -- Echocardiogram is ordered: "No obvious valvular vegetation seen. However, if clinical suspicion for endocaditis is high, consider JUAN MANUEL." --ID Consulted, rec d/c Abx. Elevated troponin. Present on admission Possible demand ischemia or from renal failure - troponin overnight, stable - complete echo 11/14: ordered for am "No obvious valvular vegetation seen. However, if clinical suspicion for endocaditis is high, consider JUAN MANUEL." Hypertension chronic active -- Some of patient's home medications were held due to low blood pressure on -- Started amlodipine 11/13 -- Continue to monitor Acute Kidney injury (baseline 55/1.44 Baseline BUN/Cr GFR 50 stage CKD). Present on admission improving - Patient is back to his baseline BUN/creatinine 39/1.40 on 11/14 -- Reviewed patient's next dentists clinic records for understanding baseline Coronary artery disease chronic active --No anginal symptoms - continue Aspirin Gout chronic active - checking Uric acid - Acetaminophen as needed for mild pain/fever/headache - Bowel regimen as needed - Antiemetic as needed Dispo- Okay for discharge today. - prednisone for acute gout flare up. Stop prednisone after 5 days of twice a day dosing until November 16. . Exam Vital Signs (Last) Date Time Temp Pulse Resp B/P Pulse Ox O2 Delivery O2 Flow Rate FiO2 11/15/16 11:43 36.9 57 18 128/64 97 Room Air Test 11/11/16 19:43 11/12/16 00:20 11/12/16 09:49 11/12/16 10:13 Lactic Acid Level 1.3mmol/L (0.4-2.0) Uric Acid 8.3mg/dL (2.6-7.2) Total Bilirubin 0.7mg/dL (0.0-1.2) Aspartate Amino Transf (AST/SGOT) 22U/L (0-50) Alanine Aminotransferase (ALT/SGPT) 13U/L (0-44) Alkaline Phosphatase 114U/L (25-160) Total Protein 8.4g/dL (6.4-8.4) Albumin 3.5g/dL (3.4-5.0) Body Fluid Source Synovial fluid Body Fluid Color Yellow (Clear) Body Fluid Appearance Turbid Body Fluid WBC 078809/mm3 Body Fluid RBC 2750/mm3 Body Fluid Polynuclear WBCs 94% Body Fluid Lymphocytes 0% Body Fluid Monocytes 6% Body Fluid Eosinophils 0% Body Fluid Basophils 0% Urine Color Yellow (YELLOW) Urine Appearance Clear (CLEAR,HAZY) Urine pH 5.5 (5.0-8.0) Urine Specific [place] 1.019 (1.003-1.035) Urine Protein 100mg/dL (NEG,TRACE) Urine Glucose (UA) Negativemg/dL (NEGATIVE) Urine Ketones Negativemg/dL (NEGATIVE) Urine Occult Blood Negative (NEGATIVE) Urine Nitrite Negative (NEGATIVE) Urine Bilirubin Negative (NEGATIVE) Urine Urobilinogen Normalmg/dL (NORMAL) Urine Leukocyte Esterase Negative (NEGATIVE) Urine RBC 0-2/hpf (0-2) Urine WBC 0-5/hpf (0-5) Urine Epithelial Cells None/hpf (NONE-MOD) Urine Crystals None seen (NONE SEEN) Urine Bacteria None/hpf (NONE-FEW) Urine Hyaline Casts Occasional/lpf (NONE) Urine Granular Casts None seen (NONE SEEN) Urine Waxy Casts None seen (NONE SEEN) Urine Red Blood Cell Casts None seen (NONE SEEN) Urine White Blood Cell Casts None seen (NONE SEEN) Urine Mucus Present (None Seen) Urine Trichomonas None seen (NONE SEEN) Urine Yeast None (NONE SEEN) Urinalysis Comment None Urine Culture Reflexed Not indicated Urine Random Creatinine 168mg/dL (22-328) Urine Urea Nitrogen 643mg/dL (Not Estab.) Troponin T 0.028ug/L (0.0-0.011) Test 11/13/16 15:42 11/14/16 04:40 11/15/16 04:44 Streptozyme 27.0IU/mL (0.0-200.0) Hemoglobin A1c 6.9% (4.8-5.6) White Blood Count 6.9th/mm3 (3.8-10.1) Red Blood Count 3.80mil/mm3 (4.40-5.80) Hemoglobin 11.8g/dL (13.8-17.2) Hematocrit 35.0% (41.0-50.0) Mean Corpuscular Volume 92.1fL (81-100) Mean Corpuscular Hemoglobin 31.1pg (27.0-35.0) Mean Corpuscular Hemoglobin Concent 33.7% (32.0-37.0) Red Cell Distribution Width 12.1% (12.3-15.4) Platelet Count 266bil/L (150-400) Neutrophils (%) (Auto) 83.6% (40-74) Lymphocytes (%) (Auto) 9.9% (14-46) Monocytes (%) (Auto) 6.0% (4-12) Eosinophils (%) (Auto) 0.1% (0-5) Basophils (%) (Auto) 0.1% (0-3) Erythrocyte Sedimentation Rate 66mm/hr (0-30) Sodium Level 140mEq/L (134-144) Potassium Level 5.1mEq/L (3.5-5.2) Chloride Level 103mEq/L (97-108) Carbon Dioxide Level 21mmol/L (18-29) Blood Urea Nitrogen 41mg/dL (8-27) Creatinine 1.62mg/dL (0.76-1.27) Estimat Glomerular Filtration Rate 45mL/min (>59) Glucose Level 177mg/dL (60-99) Calcium Level 8.9mg/dL (8.5-10.1) C-Reactive Protein 2.1mg/dL (0.0-0.5) Discharge Medications Discharge Medications Amlodipine (Amlodipine) 5 Mg Tablet 10 MG PO DAILY Prescribed by: BAHMAN DUVAL DO Aspirin (Aspirin) 325 Mg Tablet. 325 MG PO DAILY (Reported) Atorvastatin Calcium (Atorvastatin Calcium) 40 Mg Tablet 40 MG PO HS Prescribed by: BAHMAN DUVAL DO Carvedilol (Carvedilol) 6.25 Mg Tablet 6.25 MG PO BID Prescribed by: BAHMAN DUVAL DO Citalopram (Citalopram) 10 Mg Tablet 10 MG PO DAILY (Reported) Furosemide (Furosemide) 40 Mg Tablet 40 MG PO DAILY Prescribed by: BAHMAN DUVAL DO Insulin Glargine (Lantus U100 Insulin Vial) 100 Unit/Ml Vial 35 UNIT SUBQ HS Prescribed by: BAHMAN DUVAL DO Lisinopril (Lisinopril) 10 Mg Tablet 10 MG PO DAILY (Reported) Potassium Chloride ER (Potassium Chloride ER) 20 Meq Tablet.er 20 MEQ PO DAILY ( Reported) TAKE WITH FOOD Prednisone (Deltasone) 20 Mg Tablet 20 MG PO BID Prescribed by: JOY POOLE MD Tamsulosin (Flomax) 0.4 Mg Capsule 0.4 MG PO DAILY Prescribed by: BAHMAN DUVAL DO As needed Hydrocodone-Acetaminophen 5-325 mg (Hydrocodone-Acetaminophen 5-325 mg) 1 Each Tablet 1 TABLET PO Q4H PRN PRN For Pain Prescribed by: AIMEE THOMAS MD Ondansetron ODT (Ondansetron ODT) 8 Mg Tab.rapdis 8 MG PO QID PRN PRN For Nausea Prescribed by: AIMEE THOMAS MD Temazepam (Restoril) 15 Mg Capsule 30 MG PO HS PRN PRN Insomnia Prescribed by: BAHMAN DUVAL DO Miscellaneous Medications Insulin Aspart (NovoLOG U-100 Pen) 100 Unit/Ml Insuln.pen (Reported) Additional med instructions - prednisone for acute gout flare up. Stop prednisone after 5 days of twice a day dosing until November 16. Followup Plan Discharge Diet: Renal Diet Discharge Activity: No restrictions Patient Instructions Follow up with your doctor and get referral to Nephrology. Will need repeat labs to evaluate renal function in 1 week. Follow-up Provider: ULYSSES HERRERA DO Follow-up with PCP in: 1 week Joy Poole MD Nov 15, 2016 14:09
--- NOTE | 2016-11-15 18:08 | NUR ---
Discharge pt discharged to home with self at 1715. A&Ox3, CARMEN, In stable condition, IV dc'd intact, personal belongings retrieved and with pt upon discharge, Hard copy script provided to pt, Kat calderoning ongoing. CareNotes and instructions provided on dc dx, new medication, s/sx to seek medical attention for and the plan of care upon discharge. No unanswered questions/concerns left unanswered at dc. Pt ambulated off unit to his parked car.
== END 2016-11-15 17:15 | disposition home or self-care (01) | DRG 554 ==
LOC: SED 16:43 → OSC 11-12 02:00
PROVIDERS: ADMIT Hospitalist; ATTEND Internal Medicine
PROC: 0R9M3ZX Drainage of Left Elbow Joint, Percutaneous Approach, Diagnostic (ICD-10-PCS; principal; 2016-11-12)
DX: M10.9 Gout, unspecified (principal); N17.9 Acute kidney failure, unspecified; I24.8 Other forms of acute ischemic heart disease; R78.81 Bacteremia; I25.10 Atherosclerotic heart disease of native coronary artery without angina pectoris; E11.9 Type 2 diabetes mellitus without complications; I27.2 Other secondary pulmonary hypertension; Z79.4 Long term (current) use of insulin; Z79.82 Long term (current) use of aspirin